=== PATIENT | female | born 1990 | race Caucasian/White ===

== ENCOUNTER 2018-11-03 01:02 | Inpatient (IN) | payer OTHER ==
[2018-11-03] MEDS ORDERED: Tranexamic Acid 1,000 MG in Sodium Chloride 0.9% 100 ML IV PRN (17:31)
[2018-11-03] MEDS ORDERED: Sodium Chloride 0.9% 2.5 ML Syringe FLUSH PRN (17:31)
[2018-11-03] MEDS ORDERED: Misoprostol 200 MCG Tab PO PRN (17:31)
[2018-11-03] MEDS ORDERED: Nalbuphine 10 MG/1 ML Vial IVPUSH PRN (17:31)
[2018-11-03] MEDS ORDERED: Terbutaline 1 MG/ML SDV SUBCUT PRN (17:31)
[2018-11-03] MEDS ORDERED: Methylergonovine 0.2 MG/1 ML Amp IM PRN (17:31)
[2018-11-03] MEDS ORDERED: Carboprost Tromethamine 250 MCG/1 ML Amp IM PRN (17:31)
[2018-11-03] MEDS ORDERED: Sodium Chloride 0.9% 10 ML SDV IV PRN (17:31)
[2018-11-03] MEDS ORDERED: Water For Irrigation,Sterile 1,000 ML Container IRR PRN (17:31)
[2018-11-03] MEDS ORDERED: Sodium Chloride 0.9% 10 ML Syringe FLUSH PRN (17:31)
[2018-11-03] MEDS ORDERED: Dinoprostone 10 MG Insert VAG PRN (17:31)
[2018-11-03] MEDS ORDERED: Lidocaine 1% 50 ML MDV INJECT PRN (17:31)
[2018-11-03] MEDS ORDERED: Oxytocin/0.9 % Sodium Chloride 30 UNIT/500 ML BAG IV SCH ×2 (17:45)
--- NOTE | 2018-11-03 19:01 | US ---
INDICATION: Oligohydramnios. Post dates. COMPARISON: None available FINDINGS: Transabdominal examination of the is performed. A single intrauterine gestation is seen in cephalic presentation with regular cardiac activity at 135 beats per minute. The placenta is anterior and is free of the cervical os. The placental grade is II and the amniotic fluid volume is low normal. The DVP is normal at 2.7 cm. The LUIS ANGEL is low normal at 7.8 centimeters. The biophysical profile score is 8/8 with no points off. IMPRESSION: Single intrauterine gestation in cephalic presentation with regular cardiac activity. Normal DVP at 2.7 cm. Normal biophysical profile score of 8/8. Dictated by Lauri Gallo MD @ Nov 03 2018 6:56PM Signed by Dr. Lauri Gallo @ Nov 03 2018 6:59PM
[2018-11-03] MEDS: Nicotine 14 MG/24 Hr Patch TRDERM SCH (20:57)
[2018-11-04] MEDS: Lactated Ringers 1,000 ML IV SCH ×4 (09:34→22:00)
[2018-11-04] MEDS: Butorphanol 1 MG/ML SDV IVPUSH PRN ×4 (11:21→22:00)
[2018-11-04] MEDS: Ondansetron 4 MG/2 ML SDV IVPUSH PRN (19:13)
--- NOTE | 2018-11-04 22:12 | PCM.PREANE ---
Preanesthetic Assessment - Anesthesia/Transfusion/Family Hx Anesthesia History: Prior Anesthesia Without Reaction Family History of Anesthesia Reaction: No Transfusion History: No Prior Transfusion(s) - Review of Systems General: No Symptoms Pulmonary: No Symptoms Cardiovascular: No Symptoms Gastrointestinal: No Symptoms Neurological: No Symptoms Other: Reports: None - Physical Assessment Height: 5 ft 8 in Weight: 144.242 kg ASA Class: 3 Mental Status: Alert & Oriented x3 Airway Class: Mallampati = 2 Dentition: Reports: Normal Dentition Thyro-Mental Finger Breadths: 3 Mouth Opening Finger Breadths: 3 ROM/Head Extension: Full Lungs: Clear to Auscultation, Normal Respiratory Effort Cardiovascular: Regular Rate, Regular Rhythm - Lab Values: Laboratory Last Values WBC 17.50 K/uL (4.0-11.0) H 11/03/18 18:53 RBC 4.02 M/uL (4.30-5.90) L 11/03/18 18:53 Hgb 11.6 g/dL (12.0-16.0) L 11/03/18 18:53 Hct 34.8 % (36.0-46.0) L 11/03/18 18:53 MCV 86.6 fL (80.0-98.0) 11/03/18 18:53 MCH 28.9 pg (27.0-32.0) 11/03/18 18:53 MCHC 33.3 g/dL (31.0-37.0) 11/03/18 18:53 RDW Std Deviation 44.8 fl (28.0-62.0) 11/03/18 18:53 RDW Coeff of Caitlin 14 % (11.0-15.0) 11/03/18 18:53 Plt Count 276 K/uL (150-400) 11/03/18 18:53 MPV 10.60 fL (7.40-12.00) 11/03/18 18:53 Nucleated RBC % 0.0 /100WBC 11/03/18 18:53 Nucleated RBCs # 0 K/uL 11/03/18 18:53 Blood Type A POSITIVE 11/03/18 18:53 Antibody Screen NEGATIVE 11/03/18 18:53 - Allergies Allergies/Adverse Reactions: Allergies Allergy/AdvReac Type Severity Reaction Status Date / Time hydromorphone HCl Allergy Itching Verified 11/03/18 20:38 [From Dilaudid] - Acknowledgements Anesthesia Type Planned: Epidural Pt an Appropriate Candidate for the Planned Anesthesia: Yes Alternatives and Risks of Anesthesia Discussed w Pt/Guardian: Yes Pt/Guardian Understands and Agrees with Anesthesia Plan: Yes PreAnesthesia Questionnaire HEENT History: Reports: None Cardiovascular History: Reports: None Respiratory History: Reports: None Gastrointestinal History: Reports: GERD Genitourinary History: Reports: None [employer]OR History: Reports: : 1 Para: 0 LMP (Approximate): Musculoskeletal History: Reports: None Neurological History: Reports: None Psychiatric History: Reports: None Endocrine/Metabolic History: Reports: Obesity/BMI 30+ (Super Morbid Obesity) Hematologic History: Reports: None Immunologic History: Reports: None Oncologic (Cancer) History: Reports: None Dermatologic History: Reports: None - Infectious Disease History Infectious Disease History: Reports: None - Past Surgical History HEENT Surgical History: Reports: LASIK, Tonsillectomy Female Surgical History: Reports: Other (See Below) Other Female Surgeries/Procedures: patient states when she was 4 she had surgery on her left ureter re-implantation Musculoskeletal Surgical History: Reports: Other (See Below) Other Musculoskeletal Surgeries/Procedures:: left arm fx and surgery - SUBSTANCE USE Smoking Status *Q: Current Every Day Smoker Tobacco Use Within Last Twelve Months: Cigarettes Recreational Drug Use History: No - HOME MEDS Home Medications: Home Meds Omeprazole 20 mg PO DAILY 11/03/18 [History] - CURRENT (IN HOUSE) MEDS Current Meds: Current Medications Butorphanol Tartrate (Stadol) 1 mg IVPUSH Q1H PRN PRN Reason: Pain Last Admin: 11/04/18 22:00 Dose: 1 mg Carboprost Tromethamine (Hemabate Ds) 250 mcg IM ASDIRECTED PRN PRN Reason: Post Hemorrhage Dinoprostone (Cervidil) 10 mg VAG ONETIME PRN PRN Reason: Cervical Ripening Last Admin: 11/03/18 20:40 Dose: 10 mg Lactated Ringer's (Ringers, Lactated) 1,000 mls @ 150 mls/hr IV ASDIRECTED JORDIN Last Admin: 11/04/18 22:00 Dose: 150 mls/hr Oxytocin/Sodium Chloride (Oxytocin 30 Unit/500 Ml-Ns) 30 unit in 500 mls @ 999 mls/hr IV TITRATE JORDIN Oxytocin/Sodium Chloride (Oxytocin 30 Unit/500 Ml-Ns) 30 unit in 500 mls @ 2 mls/hr IV TITRATE [facility]; Protocol Last Titration: 11/04/18 17:43 Dose: 12 munits/min, 12 mls/hr Tranexamic Acid 1,000 mg/ (Sodium Chloride) 110 mls @ 660 mls/hr IV ONETIME PRN PRN Reason: Bleeding Lidocaine HCl (Xylocaine 1%) 50 ml INJECT ONETIME PRN PRN Reason: Laceration repair Methylergonovine Maleate (Methergine) 0.2 mg IM ASDIRECTED PRN PRN Reason: Post Hemorrhage Miscellaneous Information (Remove Patch) 1 ea TRDERM DAILY@2100 [facility] Misoprostol (Cytotec) 200 mcg PO ONETIME PRN PRN Reason: Post Hemorrhage Nalbuphine HCl (Nubain) 10 mg IVPUSH Q1H PRN PRN Reason: Pain (severe 7-10) Nicotine (Habitrol) 14 mg TRDERM DAILY [facility] Last Admin: 11/03/18 20:57 Dose: 14 mg Ondansetron HCl (Zofran) 4 mg IVPUSH Q6H PRN PRN Reason: Nausea/Vomiting Last Admin: 11/04/18 19:13 Dose: 4 mg Sodium Chloride (Saline Flush) 10 ml FLUSH ASDIRECTED PRN PRN Reason: Keep Vein Open Sodium Chloride (Saline Flush) 2.5 ml FLUSH ASDIRECTED PRN PRN Reason: Keep Vein Open Sodium Chloride (Normal Saline) 10 ml IV ASDIRECTED PRN PRN Reason: IV Use Sterile Water (Sterile Water For Irrigation) 1,000 ml IRR ASDIRECTED PRN PRN Reason: delivery Terbutaline Sulfate (Brethine) 0.25 mg SUBCUT ASDIRECTED PRN PRN Reason: Tacysystole
[2018-11-04 23:30] LABS: BLOOD UREA NITROGEN,BUN 10 mg/dL (7.0-18.0); CHLORIDE,CL 105 mmol/L (98-107); GLUCOSE RANDOM 89 mg/dL (74-106); POTASSIUM,K 4.7 mmol/L (3.5-5.1); SODIUM,NA 137 mmol/L (136-145)
[2018-11-05] MEDS: Lactated Ringers 1,000 ML IV SCH ×2 (07:18→20:13)
[2018-11-05] MEDS: Ondansetron 4 MG/2 ML SDV IVPUSH PRN (12:55)
[2018-11-05] MEDS ORDERED: Metoclopramide 10 MG/2 ML SDV IVPUSH ONE (16:36)
[2018-11-05] MEDS ORDERED: Gentamicin Pediatric 10 MG/ML 2 ML SDV IV ONE (20:37)
[2018-11-05] MEDS ORDERED: Ampicillin 2 GM in Sodium Chloride 0.9% 100 ML IV SCH (20:45)
[2018-11-05 21:00] LABS: BLOOD UREA NITROGEN,BUN 12 mg/dL (7.0-18.0); CARBON DIOXIDE,CO2 20.2 mmol/L (21.0-32.0); CHLORIDE,CL 103 mmol/L (98-107); GLUCOSE RANDOM 87 mg/dL (74-106); SODIUM,NA 136 mmol/L (136-145)
[2018-11-05] MEDS ORDERED: GENTAMICIN IV SCH ×2 (21:00)
[2018-11-05] MEDS ORDERED: WATER IV SCH ×2 (21:00)
[2018-11-05] MEDS ORDERED: DEXTROSE 5% IV SCH ×2 (21:00)
[2018-11-05] MEDS: Nicotine 14 MG/24 Hr Patch TRDERM SCH (21:26)
[2018-11-05] MEDS ORDERED: Bupivacaine 0.5% 30 ML SDV ONE (23:56)
[2018-11-06] MEDS ORDERED: Metoclopramide 10 MG/2 ML SDV ONE (00:14)
[2018-11-06] MEDS ORDERED: Acetaminophen/oxyCODONE 325-5 MG Tab PO PRN (00:38)
[2018-11-06] MEDS ORDERED: fentaNYL 100 MCG/2 ML SDV IVPUSH PRN (00:38)
[2018-11-06] MEDS ORDERED: Naloxone 0.4 MG/ML Syringe IVPUSH PRN (00:38)
[2018-11-06] MEDS ORDERED: Nalbuphine 10 MG/1 ML Vial IVPUSH PRN (00:38)
[2018-11-06] MEDS ORDERED: Ondansetron 4 MG/2 ML SDV IVPUSH PRN ×2 (00:38→02:07)
[2018-11-06] MEDS ORDERED: diphenhydrAMINE 50 MG/ML SDV IVPUSH PRN ×2 (00:38→02:07)
[2018-11-06] MEDS ORDERED: Morphine PF 10 MG/10 ML SDV ONE (00:45)
[2018-11-06] MEDS ORDERED: Dexamethasone 4 MG/ML 5 ML MDV ONE (01:16)
[2018-11-06] MEDS ORDERED: Ondansetron 4 MG/2 ML SDV ONE (01:16)
[2018-11-06] MEDS ORDERED: fentaNYL 100 MCG/2 ML SDV ONE (01:16)
[2018-11-06] MEDS ORDERED: Lidocaine 2% 5 ML SDV ONE (01:16)
[2018-11-06] MEDS ORDERED: Oxytocin 10 Units/1 ML SDV ONE ×2 (01:16→01:48)
--- NOTE | 2018-11-06 02:05 | PCM.OPNOTE ---
- General Post-Op/Procedure Note Date of Surgery/Procedure: 11/06/18 Operative Procedure(s): Primary low-transverse section Findings: Live female infant, cephalic presentation, Apgars 7/9, weight 3640g Normal uterus, ovaries, tubes Pre Op Diagnosis: 1. 28yo at 40w6d gestation. 2. Induction of labor for oligohydramnios. 3. Failed induction due to arrest of active phase. 4. Gestational hypertension. 5. Maternal tachycardia Post-Op Diagnosis: same Anesthesia Technique: Epidural Primary Surgeon: Jory Moss Anesthesia Provider: Riky Charles Linen Room Houseperson: Brenda Davalos Linen Room Houseperson: Delores Alamo Pathology: Placenta Fluid Replacement, Intraop: 1,500 Output, Urine Amount: 100 EBL in mLs: 700 Complications: None Condition: Good Free Text/Narrative:: Intake & Output 11/05/18 11/05/18 11/06/18 14:59 22:59 06:59 Output Total 1050 100 Balance -1050 -100 Dictation #[id number]
[2018-11-06] MEDS ORDERED: Lanolin 100% Cream 7 GM Tube TOP PRN (02:07)
[2018-11-06] MEDS ORDERED: Witch Hazel Medicated Pads 40/Jar TOP PRN (02:07)
[2018-11-06] MEDS ORDERED: diphenhydrAMINE 25 MG Cap PO PRN (02:07)
[2018-11-06] MEDS ORDERED: Bisacodyl 10 MG Supp RECTAL PRN (02:07)
[2018-11-06] MEDS ORDERED: Azithromycin 500 MG in Sodium Chloride 0.9% 250 ML IV ONE (02:12)
[2018-11-06] MEDS ORDERED: Lactated Ringers 1,000 ML IV SCH (02:15)
--- NOTE | 2018-11-06 02:42 | PCM.POSTAN ---
POST ANESTHESIA ASSESSMENT - MENTAL STATUS Mental Status: Alert - VITAL SIGNS Pulse Rate: 100 SaO2: 97 Resp Rate: 16 Blood Pressure: 125/68 Temperature: 36.5 C - RESPIRATORY Respiratory Status: Respiratory Rate WNL, Airway Patent - CARDIOVASCULAR CV Status: Pulse Rate WNL, Blood Pressure Stable - GASTROINTESTINAL GI Status: No Symptoms - POST OP HYDRATION Hydration Status: Adequate & Stable
--- NOTE | 2018-11-06 03:09 | OR ---
SURGEON: Jory Moss MD DATE OF PROCEDURE: 11/06/2018 PREOPERATIVE DIAGNOSES: 1. A 28-year-old G1, P0 at 40 weeks and 6 days' gestation. 2. Induction of labor for oligohydramnios. 3. Failed induction due to arrest of active phase. 4. Gestational hypertension. 5. Maternal tachycardia. POSTOPERATIVE DIAGNOSES: 1. A 28-year-old G1, P0 at 40 weeks and 6 days' gestation. 2. Induction of labor for oligohydramnios. 3. Failed induction due to arrest of active phase. 4. Gestational hypertension. 5. Maternal tachycardia. PROCEDURE: Primary low transverse section. ANESTHESIA: Epidural. PRIMARY SURGEON: Jory Moss MD. ANESTHESIA PROVIDER: Dr. Riky andersen. SALES OPERATIONS LEAD: 1. Brenda Davalos. 2. Delores Alamo. PATHOLOGY: Placenta. IV FLUIDS: 800 mL LR. URINE OUTPUT: 100 mL. ESTIMATED BLOOD LOSS: 700 mL. ANTIBIOTICS: Ancef 3 g given prior to procedure. COMPLICATIONS: None. FINDINGS: Live female infant in cephalic presentation. score of 7 and 9 at 1 and 5 minutes respectively. Weight 3640 g. Normal uterus, ovaries, and tubes. DESCRIPTION OF PROCEDURE: The patient progressed to 9 cm dilation. After 6 hours of no cervical change with inadequate contractions, the decision was made to proceed with primary section for arrest of active phase. Risks and benefits of the procedure were discussed with the patient. The patient was taken to the operating room with IV fluid running and Murry in place. SCDs were applied. The patient was placed in dorsal supine position with leftward tilt. She was prepared and draped in a normal sterile fashion. A Pfannenstiel skin incision was made with a scalpel and carried through to the underlying layer of fascia with a Bovie. The fascia was incised in the midline. The incision extended laterally with curved Davalos scissors. The anterior aspect of the fascial incision was grasped with Reshma clamps, elevated, and the underlying rectus muscles were dissected off bluntly in a similar fashion. The inferior aspect of the fascial incision was grasped with Reshma clamps, elevated, and the underlying rectus muscles were dissected off in blunt fashion with curved Davalos scissors. The midline of the rectus muscles was identified and the peritoneum entered bluntly with a finger. The peritoneal incision was extended using manual traction. An Wagner retractor was placed. A bladder flap was created in a usual manner. A hysterotomy was created. There was difficulty delivering the head due to hysterotomy. A hand from below was used to assist with breaking suction due to low station. The head was subsequently delivered without difficulty followed by the remainder of the body. The cord was clamped and cut, and the infant handed off to the awaiting nurse and electroencephalographic technician. The placenta was removed using uterine massage and manual traction on the cord. The uterus was cleared of all debris. Uterine incision was closed with a running locked stitch of 0 Vicryl suture. Second stitch of the same suture was used to obtain hemostasis. The gutters were cleared of all clots. The uterus was returned to the abdomen. The incision was inspected and noted to be hemostatic. The Wagner retractor was removed. The fascia was closed with 2 sutures of running 0 Vicryl, meeting in the midline. The subcutaneous tissue was closed with 3-0 Vicryl in a running fashion. The skin was closed with 4-0 Monocryl in a subcuticular fashion. The patient tolerated the procedure well. All sponge, lap, and needle counts were correct x3. The patient was taken to the recovery room in stable condition. [id number] / NIESHAL /[id number] WAYNE
[2018-11-06] MEDS: Ketorolac 30 MG/ML SDV IVPUSH SCH ×4 (05:38→20:46)
[2018-11-06] MEDS: Lactated Ringers 1,000 ML IV SCH (07:45)
--- NOTE | 2018-11-06 09:39 | PCM.PNPP ---
<Delores Alamo - Last Filed: 11/06/18 09:34> - General Info Date of Service: 11/06/18 Functional Status: Reports: Pain Controlled, Tolerating Diet, Incentive Spirometry. Denies: Ambulating - Review of Systems General: Reports: No Symptoms. Denies: Fever, Fatigue HEENT: Reports: No Symptoms. Denies: Headaches Pulmonary: Reports: No Symptoms. Denies: Shortness of Breath Cardiovascular: Reports: No Symptoms. Denies: Chest Pain, Palpitations Gastrointestinal: Reports: Abdominal Pain (mild incisional pain) Genitourinary: Reports: No Symptoms Musculoskeletal: Reports: No Symptoms Skin: Reports: No Symptoms Neurological: Reports: No Symptoms Psychiatric: Reports: No Symptoms - General Info Date of Service: 11/06/18 - Patient Data Vital Signs - Most Recent: Last Vital Signs Temp 97.8 F 11/06/18 08:00 Pulse 92 11/06/18 08:00 Resp 16 11/06/18 08:00 BP 141/85 H 11/06/18 08:00 Pulse Ox 96 11/06/18 08:00 Weight - Most Recent: 144.242 kg I&O - Last 24 Hours: Intake & Output 11/05/18 11/06/18 11/06/18 22:59 06:59 14:59 Intake Total 3500 Output Total 1050 750 380 Balance -1050 2750 -380 Lab Results - Last 24 Hours: Laboratory Results - last 24 hr 11/05/18 11/05/18 Range/Units 20:03 20:03 WBC 21.88 H (4.0-11.0) K/uL RBC 3.90 L (4.30-5.90) M/uL Hgb 11.4 L (12.0-16.0) g/dL Hct 33.5 L (36.0-46.0) % MCV 85.9 (80.0-98.0) fL MCH 29.2 (27.0-32.0) pg MCHC 34.0 (31.0-37.0) g/dL RDW Std Deviation 42.7 (28.0-62.0) fl RDW Coeff of Caitlin 14 (11.0-15.0) % Plt Count 217 (150-400) K/uL MPV 10.90 (7.40-12.00) fL Sodium 136 (136-145) mmol/L Potassium 4.0 (3.5-5.1) mmol/L Chloride 103 (98-107) mmol/L Carbon Dioxide 20.2 L (21.0-32.0) mmol/L BUN 12 (7.0-18.0) mg/dL Creatinine 1.0 (0.6-1.0) mg/dL Est Cr Clr Drug Dosing 86.00 mL/min Estimated GFR (MDRD) > 60.0 ml/min Glucose 87 (74-106) mg/dL Calcium 9.2 (8.5-10.1) mg/dL Total Bilirubin 0.8 (0.2-1.0) mg/dL AST 19 (15-37) IU/L ALT 18 (14-63) IU/L Alkaline Phosphatase 119 H (46-116) U/L Lactate Dehydrogenase 188 (81-234) U/L Total Protein 6.1 L (6.4-8.2) g/dL Albumin 2.5 L (3.4-5.0) g/dL Globulin 3.6 (2.6-4.0) g/dL Albumin/Globulin Ratio 0.7 L (0.9-1.6) Med Orders - Current: Current Medications Bisacodyl (Dulcolax) 10 mg RECTAL ONETIME PRN PRN Reason: Constipation Butorphanol Tartrate (Stadol) 1 mg IVPUSH Q1H PRN PRN Reason: Pain Last Admin: 11/04/18 22:00 Dose: 1 mg Carboprost Tromethamine (Hemabate Ds) 250 mcg IM ASDIRECTED PRN PRN Reason: Post Hemorrhage Dinoprostone (Cervidil) 10 mg VAG ONETIME PRN PRN Reason: Cervical Ripening Last Admin: 11/03/18 20:40 Dose: 10 mg Diphenhydramine HCl (Benadryl) 25 mg IVPUSH Q4H PRN PRN Reason: Itching Stop: 11/07/18 00:38 Diphenhydramine HCl (Benadryl) 25 mg IVPUSH Q6H PRN PRN Reason: Itching or Nausea Diphenhydramine HCl (Benadryl) 25 mg PO Q4H PRN PRN Reason: Itching Docusate Sodium (Colace) 100 mg PO BID [facility] Emollient Ointment (Lansinoh Hpa) 0 gm TOP ASDIRECTED PRN PRN Reason: Sore Nipples Fentanyl (Sublimaze) 50 mcg IVPUSH Q1H PRN PRN Reason: Pain (severe 7-10) Lactated Ringer's (Ringers, Lactated) 1,000 mls @ 150 mls/hr IV ASDIRECTED [facility] Last Admin: 11/06/18 07:45 Dose: 150 mls/hr Oxytocin/Sodium Chloride (Oxytocin 30 Unit/500 Ml-Ns) 30 unit in 500 mls @ 999 mls/hr IV TITRATE [facility] Oxytocin/Sodium Chloride (Oxytocin 30 Unit/500 Ml-Ns) 30 unit in 500 mls @ 2 mls/hr IV TITRATE [facility]; Protocol Last Titration: 11/05/18 22:46 Dose: 20 munits/min, 20 mls/hr Tranexamic Acid 1,000 mg/ (Sodium Chloride) 110 mls @ 660 mls/hr IV ONETIME PRN PRN Reason: Bleeding Gentamicin Sulfate 480 mg/ (Dextrose/Water) 112 mls @ 224 mls/hr IV Q24H [facility] Lactated Ringer's (Ringers, Lactated) 1,000 mls @ 125 mls/hr IV ASDIRECTED [facility] Ibuprofen (Motrin) 800 mg PO Q8H [facility] Ketorolac Tromethamine (Toradol) 30 mg IVPUSH Q6H [facility] Stop: 11/07/18 02:16 Last Admin: 11/06/18 08:15 Dose: 30 mg Lidocaine HCl (Xylocaine 1%) 50 ml INJECT ONETIME PRN PRN Reason: Laceration repair Methylergonovine Maleate (Methergine) 0.2 mg IM ASDIRECTED PRN PRN Reason: Post Hemorrhage Miscellaneous Information (Remove Patch) 1 ea TRDERM DAILY@2100 [facility] Last Admin: 11/06/18 05:37 Dose: Not Given Misoprostol (Cytotec) 200 mcg PO ONETIME PRN PRN Reason: Post Hemorrhage Nalbuphine HCl (Nubain) 10 mg IVPUSH Q1H PRN PRN Reason: Pain (severe 7-10) Nalbuphine HCl (Nubain) 5 mg IVPUSH ASDIRECTED PRN PRN Reason: Itching Last Admin: 11/06/18 07:46 Dose: 5 mg Naloxone HCl (Narcan) 0.1 mg IVPUSH ONETIME PRN PRN Reason: Respiratory Depression Stop: 11/07/18 00:38 Nicotine (Habitrol) 14 mg TRDERM DAILY [facility] Last Admin: 11/05/18 21:26 Dose: Not Given Ondansetron HCl (Zofran) 4 mg IVPUSH Q6H PRN PRN Reason: Nausea Ondansetron HCl (Zofran) 4 mg IVPUSH Q4H PRN PRN Reason: Nausea/Vomiting Oxycodone/Acetaminophen (Percocet 325-5 Mg) 1 tab PO Q4H PRN PRN Reason: Pain (moderate 4-6) Oxycodone/Acetaminophen (Percocet 325-5 Mg) 2 tab PO Q4H PRN PRN Reason: Pain (moderate 4-6) Simethicone (Simethicone) 80 mg PO Q4H PRN PRN Reason: Gas Sodium Chloride (Saline Flush) 10 ml FLUSH ASDIRECTED PRN PRN Reason: Keep Vein Open Last Admin: 11/05/18 16:51 Dose: 10 ml Sodium Chloride (Saline Flush) 2.5 ml FLUSH ASDIRECTED PRN PRN Reason: Keep Vein Open Sodium Chloride (Normal Saline) 10 ml IV ASDIRECTED PRN PRN Reason: IV Use Sterile Water (Sterile Water For Irrigation) 1,000 ml IRR ASDIRECTED PRN PRN Reason: delivery Terbutaline Sulfate (Brethine) 0.25 mg SUBCUT ASDIRECTED PRN PRN Reason: Tacysystole Witch Valery (Tucks) 1 pad TOP ASDIRECTED PRN PRN Reason: Perineal Comfort Measure Discontinued Medications Bupivacaine HCl (Marcaine 0.5%) Confirm Administered Dose 30 ml .ROUTE .STK-MED ONE Stop: 11/05/18 23:57 Dexamethasone (Dexamethasone) Confirm Administered Dose 20 mg .ROUTE .STK-MED ONE Stop: 11/06/18 01:17 Fentanyl (Sublimaze) Confirm Administered Dose 100 mcg .ROUTE .STK-MED ONE Stop: 11/06/18 01:17 Fentanyl/Bupivacaine HCl (Jvichqmr-Krilm-Lm 2 Mcg/Ml-0.125%) Confirm Administered Dose 100 mls @ as directed .ROUTE .STK-MED ONE Stop: 11/04/18 22:19 Fentanyl/Bupivacaine HCl (Vhiyfyes-Vtdih-Lw 2 Mcg/Ml-0.125%) Confirm Administered Dose 100 mls @ as directed .ROUTE .STK-MED ONE Stop: 11/05/18 08:01 Fentanyl/Bupivacaine HCl (Mxwgcjfa-Qsffl-Hi 2 Mcg/Ml-0.125%) Confirm Administered Dose 100 mls @ as directed .ROUTE .STK-MED ONE Stop: 11/05/18 14:52 Ampicillin Sodium 2 gm/ Sodium (Chloride) 100 mls @ 200 mls/hr IV Q6H [facility] Fentanyl/Bupivacaine HCl (Lcihtevm-Pmipo-Sq 2 Mcg/Ml-0.125%) Confirm Administered Dose 100 mls @ as directed .ROUTE .STK-MED ONE Stop: 11/05/18 21:12 Azithromycin 500 mg/ Sodium (Chloride) 250 mls @ 250 mls/hr IV ONETIME ONE Stop: 11/06/18 03:11 Last Admin: 11/06/18 03:11 Dose: 250 mls/hr Lidocaine (Xylocaine-Mpf 2%) Confirm Administered Dose 5 ml .ROUTE .ST-MED ONE Stop: 11/06/18 01:17 Metoclopramide HCl (Reglan) 10 mg IVPUSH ONETIME ONE Stop: 11/05/18 16:37 Last Admin: 11/05/18 16:47 Dose: 10 mg Metoclopramide HCl (Reglan) Confirm Administered Dose 10 mg .ROUTE .STK-MED ONE Stop: 11/06/18 00:15 Morphine Sulfate (Duramorph Pf) Confirm Administered Dose 10 mg .ROUTE .ST-MED ONE Stop: 11/06/18 00:46 Ondansetron HCl (Zofran) 4 mg IVPUSH Q6H PRN PRN Reason: Nausea/Vomiting Last Admin: 11/05/18 12:55 Dose: 4 mg Ondansetron HCl (Zofran) Confirm Administered Dose 8 mg .ROUTE .STK-MED ONE Stop: 11/06/18 01:17 Oxycodone/Acetaminophen (Percocet 325-5 Mg) 2 tab PO Q6H PRN PRN Reason: Pain (moderate 4-6) Oxytocin (Pitocin) Confirm Administered Dose 30 unit .ROUTE .STK-MED ONE Stop: 11/06/18 01:17 Oxytocin (Pitocin) Confirm Administered Dose 30 unit .ROUTE .STK-MED ONE Stop: 11/06/18 01:49 - Infant Interaction Disposition, : [facility] to Nursery Infant Interaction: Unable to Hold Infant at this Time Infant Feeding: Other (see below) (Has not attempted to breastfeed yet as is on O2 in the nursery. Planning to try today. ) Support Person: Significant Other - Recovery Exam Fundal Tone: Firm Fundal Level: 1 Fingerbreadths Below Umbilicus Fundal Placement: Midline Lochia Amount: Scant Lochia Color: Rubra/Red Perineum Description: Intact, Minimal Bruising/Swelling Episiotomy/Laceration: None Bladder Status: Indwelling Catheter in Place Urinary Elimination: Indwelling Catheter - Exam General: Alert, Oriented HEENT: Pupils Equal Neck: Supple Lungs: Clear to Auscultation, Normal Respiratory Effort Cardiovascular: Regular Rate, Regular Rhythm GI/Abdominal Exam: Normal Bowel Sounds, Soft, Non-Tender, No Organomegaly, No Distention, No Abnormal Bruit, No Mass, Pelvis Stable Extremities: Normal Inspection, Normal Range of Motion, Non-Tender, No Pedal Edema, Normal Capillary Refill Skin: Warm, Dry, Intact Wound/Incisions: Dressing Dry and Intact, No Drainage Neurological: No New Focal Deficit Psy/Mental Status: Alert, Normal Affect, Normal Mood - Problem List Review Problem List Initiated/Reviewed/Updated: Yes - Assessment Assessment:: POD 0 s/p primary LTCS Has not attempted yet but is planning on Pain well controlled but has not ambulated yet Tolerating light snacks, ordered breakfast. Catheter still in place - Plan Plan:: Regular diet as tolerated Pain control PRN Remove catheter today Ambulate PRN Incentive spirometry Routine care <Jory Moss - Last Filed: 11/06/18 10:34> - Patient Data Vital Signs - Most Recent: Last Vital Signs Temp 36.6 C 11/06/18 08:00 Pulse 89 11/06/18 09:00 Resp 18 11/06/18 09:00 BP 141/85 H 11/06/18 08:00 Pulse Ox 98 11/06/18 09:00 I&O - Last 24 Hours: Intake & Output 11/05/18 11/06/18 11/06/18 22:59 06:59 14:59 Intake Total 3500 Output Total 1050 750 380 Balance -1050 2750 -380 Lab Results - Last 24 Hours: Laboratory Results - last 24 hr 11/05/18 11/05/18 Range/Units 20:03 20:03 WBC 21.88 H (4.0-11.0) K/uL RBC 3.90 L (4.30-5.90) M/uL Hgb 11.4 L (12.0-16.0) g/dL Hct 33.5 L (36.0-46.0) % MCV 85.9 (80.0-98.0) fL MCH 29.2 (27.0-32.0) pg MCHC 34.0 (31.0-37.0) g/dL RDW Std Deviation 42.7 (28.0-62.0) fl RDW Coeff of Caitlin 14 (11.0-15.0) % Plt Count 217 (150-400) K/uL MPV 10.90 (7.40-12.00) fL Sodium 136 (136-145) mmol/L Potassium 4.0 (3.5-5.1) mmol/L Chloride 103 (98-107) mmol/L Carbon Dioxide 20.2 L (21.0-32.0) mmol/L BUN 12 (7.0-18.0) mg/dL Creatinine 1.0 (0.6-1.0) mg/dL Est Cr Clr Drug Dosing 86.00 mL/min Estimated GFR (MDRD) > 60.0 ml/min Glucose 87 (74-106) mg/dL Calcium 9.2 (8.5-10.1) mg/dL Total Bilirubin 0.8 (0.2-1.0) mg/dL AST 19 (15-37) IU/L ALT 18 (14-63) IU/L Alkaline Phosphatase 119 H (46-116) U/L Lactate Dehydrogenase 188 (81-234) U/L Total Protein 6.1 L (6.4-8.2) g/dL Albumin 2.5 L (3.4-5.0) g/dL Globulin 3.6 (2.6-4.0) g/dL Albumin/Globulin Ratio 0.7 L (0.9-1.6) Med Orders - Current: Current Medications Bisacodyl (Dulcolax) 10 mg RECTAL ONETIME PRN PRN Reason: Constipation Butorphanol Tartrate (Stadol) 1 mg IVPUSH Q1H PRN PRN Reason: Pain Last Admin: 11/04/18 22:00 Dose: 1 mg Carboprost Tromethamine (Hemabate Ds) 250 mcg IM ASDIRECTED PRN PRN Reason: Post Hemorrhage Dinoprostone (Cervidil) 10 mg VAG ONETIME PRN PRN Reason: Cervical Ripening Last Admin: 11/03/18 20:40 Dose: 10 mg Diphenhydramine HCl (Benadryl) 25 mg IVPUSH Q4H PRN PRN Reason: Itching Stop: 11/07/18 00:38 Diphenhydramine HCl (Benadryl) 25 mg IVPUSH Q6H PRN PRN Reason: Itching or Nausea Diphenhydramine HCl (Benadryl) 25 mg PO Q4H PRN PRN Reason: Itching Docusate Sodium (Colace) 100 mg PO BID [facility] Emollient Ointment (Lansinoh Hpa) 0 gm TOP ASDIRECTED PRN PRN Reason: Sore Nipples Fentanyl (Sublimaze) 50 mcg IVPUSH Q1H PRN PRN Reason: Pain (severe 7-10) Lactated Ringer's (Ringers, Lactated) 1,000 mls @ 150 mls/hr IV ASDIRECTED [facility] Last Admin: 11/06/18 07:45 Dose: 150 mls/hr Oxytocin/Sodium Chloride (Oxytocin 30 Unit/500 Ml-Ns) 30 unit in 500 mls @ 999 mls/hr IV TITRATE [facility] Oxytocin/Sodium Chloride (Oxytocin 30 Unit/500 Ml-Ns) 30 unit in 500 mls @ 2 mls/hr IV TITRATE [facility]; Protocol Last Titration: 11/05/18 22:46 Dose: 20 munits/min, 20 mls/hr Tranexamic Acid 1,000 mg/ (Sodium Chloride) 110 mls @ 660 mls/hr IV ONETIME PRN PRN Reason: Bleeding Gentamicin Sulfate 480 mg/ (Dextrose/Water) 112 mls @ 224 mls/hr IV Q24H [facility] Lactated Ringer's (Ringers, Lactated) 1,000 mls @ 125 mls/hr IV ASDIRECTED [facility] Ibuprofen (Motrin) 800 mg PO Q8H [facility] Ketorolac Tromethamine (Toradol) 30 mg IVPUSH Q6H [facility] Stop: 11/07/18 02:16 Last Admin: 11/06/18 08:15 Dose: 30 mg Lidocaine HCl (Xylocaine 1%) 50 ml INJECT ONETIME PRN PRN Reason: Laceration repair Methylergonovine Maleate (Methergine) 0.2 mg IM ASDIRECTED PRN PRN Reason: Post Hemorrhage Miscellaneous Information (Remove Patch) 1 ea TRDERM DAILY@2100 [facility] Last Admin: 11/06/18 05:37 Dose: Not Given Misoprostol (Cytotec) 200 mcg PO ONETIME PRN PRN Reason: Post Hemorrhage Nalbuphine HCl (Nubain) 10 mg IVPUSH Q1H PRN PRN Reason: Pain (severe 7-10) Nalbuphine HCl (Nubain) 5 mg IVPUSH ASDIRECTED PRN PRN Reason: Itching Last Admin: 11/06/18 07:46 Dose: 5 mg Naloxone HCl (Narcan) 0.1 mg IVPUSH ONETIME PRN PRN Reason: Respiratory Depression Stop: 11/07/18 00:38 Nicotine (Habitrol) 14 mg TRDERM DAILY [facility] Last Admin: 11/05/18 21:26 Dose: Not Given Ondansetron HCl (Zofran) 4 mg IVPUSH Q6H PRN PRN Reason: Nausea Ondansetron HCl (Zofran) 4 mg IVPUSH Q4H PRN PRN Reason: Nausea/Vomiting Oxycodone/Acetaminophen (Percocet 325-5 Mg) 1 tab PO Q4H PRN PRN Reason: Pain (moderate 4-6) Oxycodone/Acetaminophen (Percocet 325-5 Mg) 2 tab PO Q4H PRN PRN Reason: Pain (moderate 4-6) Simethicone (Simethicone) 80 mg PO Q4H PRN PRN Reason: Gas Sodium Chloride (Saline Flush) 10 ml FLUSH ASDIRECTED PRN PRN Reason: Keep Vein Open Last Admin: 11/05/18 16:51 Dose: 10 ml Sodium Chloride (Saline Flush) 2.5 ml FLUSH ASDIRECTED PRN PRN Reason: Keep Vein Open Sodium Chloride (Normal Saline) 10 ml IV ASDIRECTED PRN PRN Reason: IV Use Sterile Water (Sterile Water For Irrigation) 1,000 ml IRR ASDIRECTED PRN PRN Reason: delivery Terbutaline Sulfate (Brethine) 0.25 mg SUBCUT ASDIRECTED PRN PRN Reason: Tacysystole Carlotta Rasmussen (Tucks) 1 pad TOP ASDIRECTED PRN PRN Reason: Perineal Comfort Measure Discontinued Medications Bupivacaine HCl (Marcaine 0.5%) Confirm Administered Dose 30 ml .ROUTE .STK-MED ONE Stop: 11/05/18 23:57 Dexamethasone (Dexamethasone) Confirm Administered Dose 20 mg .ROUTE .STK-MED ONE Stop: 11/06/18 01:17 Fentanyl (Sublimaze) Confirm Administered Dose 100 mcg .ROUTE .STK-MED ONE Stop: 11/06/18 01:17 Fentanyl/Bupivacaine HCl (Oaoeiztn-Ajkqv-Zk 2 Mcg/Ml-0.125%) Confirm Administered Dose 100 mls @ as directed .ROUTE .STK-MED ONE Stop: 11/04/18 22:19 Fentanyl/Bupivacaine HCl (Fvbfkbwh-Cvhvm-Mz 2 Mcg/Ml-0.125%) Confirm Administered Dose 100 mls @ as directed .ROUTE .STK-MED ONE Stop: 11/05/18 08:01 Fentanyl/Bupivacaine HCl (Mhlvaujr-Oinzh-Eh 2 Mcg/Ml-0.125%) Confirm Administered Dose 100 mls @ as directed .ROUTE .ST-MED ONE Stop: 11/05/18 14:52 Ampicillin Sodium 2 gm/ Sodium (Chloride) 100 mls @ 200 mls/hr IV Q6H [facility] Fentanyl/Bupivacaine HCl (Dcybisyr-Ahfan-Lg 2 Mcg/Ml-0.125%) Confirm Administered Dose 100 mls @ as directed .ROUTE .ST-MED ONE Stop: 11/05/18 21:12 Azithromycin 500 mg/ Sodium (Chloride) 250 mls @ 250 mls/hr IV ONETIME ONE Stop: 11/06/18 03:11 Last Admin: 11/06/18 03:11 Dose: 250 mls/hr Lidocaine (Xylocaine-Mpf 2%) Confirm Administered Dose 5 ml .ROUTE .STK-MED ONE Stop: 11/06/18 01:17 Metoclopramide HCl (Reglan) 10 mg IVPUSH ONETIME ONE Stop: 11/05/18 16:37 Last Admin: 11/05/18 16:47 Dose: 10 mg Metoclopramide HCl (Reglan) Confirm Administered Dose 10 mg .ROUTE .STK-MED ONE Stop: 11/06/18 00:15 Morphine Sulfate (Duramorph Pf) Confirm Administered Dose 10 mg .ROUTE .STK-MED ONE Stop: 11/06/18 00:46 Ondansetron HCl (Zofran) 4 mg IVPUSH Q6H PRN PRN Reason: Nausea/Vomiting Last Admin: 11/05/18 12:55 Dose: 4 mg Ondansetron HCl (Zofran) Confirm Administered Dose 8 mg .ROUTE .STK-MED ONE Stop: 11/06/18 01:17 Oxycodone/Acetaminophen (Percocet 325-5 Mg) 2 tab PO Q6H PRN PRN Reason: Pain (moderate 4-6) Oxytocin (Pitocin) Confirm Administered Dose 30 unit .ROUTE .STK-MED ONE Stop: 11/06/18 01:17 Oxytocin (Pitocin) Confirm Administered Dose 30 unit .ROUTE .STK-MED ONE Stop: 11/06/18 01:49 - Problem List & Annotations (1) delivery delivered SNOMED Code(s): 241564235 Code(s): O82 - ENCOUNTER FOR DELIVERY WITHOUT INDICATION Status: Acute Current Visit: Yes - My Orders Last 24 Hours: My Active Orders 11/05/18 21:00 Gentamicin 480 mg Dextrose 5% in Water 100 ml IV Q24H 11/06/18 02:07 Patient Status [ADT] Routine Ambulate [RC] PER UNIT ROUTINE Antiembolic Devices [RC] PER UNIT ROUTINE Communication Order [RC] PER UNIT ROUTINE Communication Order [RC] PER UNIT ROUTINE Communication Order [RC] Per Unit Routine Intake and Output [RC] Q8H May Shower [RC] ASDIRECTED Notify Provider Intake and Out [RC] ASDIRECTED Notify Provider Vital Signs [RC] ASDIRECTED RT Incentive Spirometry [RC] Q2HWA Urinary Catheter Removal [RC] Per Unit Routine Acetaminophen/oxyCODONE [Percocet 325-5 MG] 1 tab PO Q4H PRN Acetaminophen/oxyCODONE [Percocet 325-5 MG] 2 tab PO Q4H PRN Bisacodyl [Dulcolax] 10 mg RECTAL ONETIME PRN Lanolin [Lansinoh HPA] See Dose Instructions TOP ASDIRECTED PRN Ondansetron [Zofran] 4 mg IVPUSH Q4H PRN Simethicone 80 mg PO Q4H PRN Witch Valery [Tucks] 1 pad TOP ASDIRECTED PRN diphenhydrAMINE [Benadryl] 25 mg IVPUSH Q6H PRN diphenhydrAMINE [Benadryl] 25 mg PO Q4H PRN Assess Lochia [WOMSER] Per Unit Routine Assess Uterine Involution [WOMSER] Per Unit Routine Breast Pump [WOMSER] Per Unit Routine Peripheral IV Discontinue [OM.PC] Routine Sequential Compression Device [OM.PC] Per Unit Routine 11/06/18 02:08 Abdominal Binder [OM.PC] Per Unit Routine Heat Therapy [OM.PC] Per Unit Routine Ice Therapy [OM.PC] Per Unit Routine 11/06/18 02:15 Ketorolac [Toradol] 30 mg IVPUSH Q6H Lactated Ringers [Ringers, Lactated] 1,000 ml IV ASDIRECTED 11/06/18 09:00 Docusate Sodium [Colace] 100 mg PO BID 11/06/18 12:00 HEMOGLOBIN/HEMATOCRIT,HH [HEME] Routine 11/06/18 Breakfast Regular Diet [DIET] 11/07/18 08:00 Ibuprofen [Motrin] 800 mg PO Q8H - Plan Plan:: I have seen and examined the patient and agree with the above. Encourage ambulation. Anticipate discharge home POD#2-3
--- NOTE | 2018-11-06 11:41 | PCM48HPAN ---
Post Anesthesia Note - EVALUATION WITHIN 48HRS OF ANESTHETIC Vital Signs in Normal Range: Yes Patient Participated in Evaluation: Yes Respiratory Function Stable: Yes Airway Patent: Yes Cardiovascular Function Stable: Yes Hydration Status Stable: Yes Pain Control Satisfactory: Yes Nausea and Vomiting Control Satisfactory: Yes Mental Status Recovered: Yes Pulse Rate: 100 Resp Rate: 18 Temperature: 36.5 C Blood Pressure: 125/68
[2018-11-06] MEDS: Docusate Sodium 100 MG Cap PO SCH ×2 (21:10→21:25)
[2018-11-07] MEDS: Ketorolac 30 MG/ML SDV IVPUSH SCH (02:44)
[2018-11-07] MEDS: Simethicone 80 MG Tab.Chew PO PRN (06:33)
--- NOTE | 2018-11-07 07:21 | PCM.PNPP ---
<Delores Alamo - Last Filed: 11/07/18 07:19> - General Info Date of Service: 11/07/18 Functional Status: Reports: Pain Controlled, Tolerating Diet, Ambulating, Urinating, Incentive Spirometry - Review of Systems General: Reports: No Symptoms. Denies: Fever, Fatigue HEENT: Reports: No Symptoms. Denies: Headaches Pulmonary: Reports: No Symptoms. Denies: Shortness of Breath Cardiovascular: Reports: No Symptoms. Denies: Chest Pain, Palpitations Gastrointestinal: Reports: Abdominal Pain (cramping and mild incisional pain) Genitourinary: Reports: No Symptoms. Denies: Dysuria Musculoskeletal: Reports: No Symptoms Skin: Reports: No Symptoms Neurological: Reports: No Symptoms Psychiatric: Reports: No Symptoms - General Info Date of Service: 11/07/18 - Patient Data Vital Signs - Most Recent: Last Vital Signs Temp 97.8 F 11/07/18 06:37 Pulse 104 H 11/07/18 06:37 Resp 18 11/07/18 04:50 BP 123/78 11/07/18 06:37 Pulse Ox 100 11/07/18 06:17 Weight - Most Recent: 144.242 kg I&O - Last 24 Hours: Intake & Output 11/06/18 11/07/18 11/07/18 22:59 06:59 14:59 Intake Total 800 Output Total 1300 Balance -500 Lab Results - Last 24 Hours: Laboratory Results - last 24 hr 11/06/18 Range/Units 13:03 Hgb 10.1 L (12.0-16.0) g/dL Hct 29.2 L (36.0-46.0) % Med Orders - Current: Current Medications Bisacodyl (Dulcolax) 10 mg RECTAL ONETIME PRN PRN Reason: Constipation Butorphanol Tartrate (Stadol) 1 mg IVPUSH Q1H PRN PRN Reason: Pain Last Admin: 11/04/18 22:00 Dose: 1 mg Carboprost Tromethamine (Hemabate Ds) 250 mcg IM ASDIRECTED PRN PRN Reason: Post Hemorrhage Dinoprostone (Cervidil) 10 mg VAG ONETIME PRN PRN Reason: Cervical Ripening Last Admin: 11/03/18 20:40 Dose: 10 mg Diphenhydramine HCl (Benadryl) 25 mg IVPUSH Q6H PRN PRN Reason: Itching or Nausea Diphenhydramine HCl (Benadryl) 25 mg PO Q4H PRN PRN Reason: Itching Docusate Sodium (Colace) 100 mg PO BID [facility] Last Admin: 11/06/18 21:25 Dose: 100 mg Emollient Ointment (Lansinoh Hpa) 0 gm TOP ASDIRECTED PRN PRN Reason: Sore Nipples Fentanyl (Sublimaze) 50 mcg IVPUSH Q1H PRN PRN Reason: Pain (severe 7-10) Lactated Ringer's (Ringers, Lactated) 1,000 mls @ 150 mls/hr IV ASDIRECTED [facility] Last Admin: 11/06/18 07:45 Dose: 150 mls/hr Oxytocin/Sodium Chloride (Oxytocin 30 Unit/500 Ml-Ns) 30 unit in 500 mls @ 999 mls/hr IV TITRATE [facility] Oxytocin/Sodium Chloride (Oxytocin 30 Unit/500 Ml-Ns) 30 unit in 500 mls @ 2 mls/hr IV TITRATE [facility]; Protocol Last Titration: 11/05/18 22:46 Dose: 20 munits/min, 20 mls/hr Tranexamic Acid 1,000 mg/ (Sodium Chloride) 110 mls @ 660 mls/hr IV ONETIME PRN PRN Reason: Bleeding Gentamicin Sulfate 480 mg/ (Dextrose/Water) 112 mls @ 224 mls/hr IV Q24H [facility] Lactated Ringer's (Ringers, Lactated) 1,000 mls @ 125 mls/hr IV ASDIRECTED [facility] Last Admin: 11/06/18 15:15 Dose: 125 mls/hr Ibuprofen (Motrin) 800 mg PO Q8H [facility] Lidocaine HCl (Xylocaine 1%) 50 ml INJECT ONETIME PRN PRN Reason: Laceration repair Methylergonovine Maleate (Methergine) 0.2 mg IM ASDIRECTED PRN PRN Reason: Post Hemorrhage Miscellaneous Information (Remove Patch) 1 ea TRDERM DAILY@2100 [facility] Last Admin: 11/06/18 05:37 Dose: Not Given Misoprostol (Cytotec) 200 mcg PO ONETIME PRN PRN Reason: Post Hemorrhage Nalbuphine HCl (Nubain) 10 mg IVPUSH Q1H PRN PRN Reason: Pain (severe 7-10) Nalbuphine HCl (Nubain) 5 mg IVPUSH ASDIRECTED PRN PRN Reason: Itching Last Admin: 11/06/18 07:46 Dose: 5 mg Nicotine (Habitrol) 14 mg TRDERM DAILY [facility] Last Admin: 11/05/18 21:26 Dose: Not Given Ondansetron HCl (Zofran) 4 mg IVPUSH Q6H PRN PRN Reason: Nausea Ondansetron HCl (Zofran) 4 mg IVPUSH Q4H PRN PRN Reason: Nausea/Vomiting Oxycodone/Acetaminophen (Percocet 325-5 Mg) 1 tab PO Q4H PRN PRN Reason: Pain (moderate 4-6) Oxycodone/Acetaminophen (Percocet 325-5 Mg) 2 tab PO Q4H PRN PRN Reason: Pain (moderate 4-6) Simethicone (Simethicone) 80 mg PO Q4H PRN PRN Reason: Gas Last Admin: 11/07/18 06:33 Dose: 80 mg Sodium Chloride (Saline Flush) 10 ml FLUSH ASDIRECTED PRN PRN Reason: Keep Vein Open Last Admin: 11/05/18 16:51 Dose: 10 ml Sodium Chloride (Saline Flush) 2.5 ml FLUSH ASDIRECTED PRN PRN Reason: Keep Vein Open Sodium Chloride (Normal Saline) 10 ml IV ASDIRECTED PRN PRN Reason: IV Use Sterile Water (Sterile Water For Irrigation) 1,000 ml IRR ASDIRECTED PRN PRN Reason: delivery Terbutaline Sulfate (Brethine) 0.25 mg SUBCUT ASDIRECTED PRN PRN Reason: Tacysystole Witch Valery (Tucks) 1 pad TOP ASDIRECTED PRN PRN Reason: Perineal Comfort Measure Discontinued Medications Bupivacaine HCl (Marcaine 0.5%) Confirm Administered Dose 30 ml .ROUTE .STK-MED ONE Stop: 11/05/18 23:57 Dexamethasone (Dexamethasone) Confirm Administered Dose 20 mg .ROUTE .STK-MED ONE Stop: 11/06/18 01:17 Diphenhydramine HCl (Benadryl) 25 mg IVPUSH Q4H PRN PRN Reason: Itching Stop: 11/07/18 00:38 Fentanyl (Sublimaze) Confirm Administered Dose 100 mcg .ROUTE .STK-MED ONE Stop: 11/06/18 01:17 Fentanyl/Bupivacaine HCl (Bwyukvis-Nitdr-Oi 2 Mcg/Ml-0.125%) Confirm Administered Dose 100 mls @ as directed .ROUTE .STK-MED ONE Stop: 11/04/18 22:19 Fentanyl/Bupivacaine HCl (Nizcagaj-Snrsg-Ft 2 Mcg/Ml-0.125%) Confirm Administered Dose 100 mls @ as directed .ROUTE .STK-MED ONE Stop: 11/05/18 08:01 Fentanyl/Bupivacaine HCl (Qnvczkau-Sijdk-Wv 2 Mcg/Ml-0.125%) Confirm Administered Dose 100 mls @ as directed .ROUTE .STK-MED ONE Stop: 11/05/18 14:52 Ampicillin Sodium 2 gm/ Sodium (Chloride) 100 mls @ 200 mls/hr IV Q6H [facility] Fentanyl/Bupivacaine HCl (Zsjmbfvi-Tguer-Qb 2 Mcg/Ml-0.125%) Confirm Administered Dose 100 mls @ as directed .ROUTE .STK-MED ONE Stop: 11/05/18 21:12 Azithromycin 500 mg/ Sodium (Chloride) 250 mls @ 250 mls/hr IV ONETIME ONE Stop: 11/06/18 03:11 Last Admin: 11/06/18 03:11 Dose: 250 mls/hr Ketorolac Tromethamine (Toradol) 30 mg IVPUSH Q6H [facility] Stop: 11/07/18 02:16 Last Admin: 11/07/18 02:44 Dose: 30 mg Lidocaine (Xylocaine-Mpf 2%) Confirm Administered Dose 5 ml .ROUTE .STK-MED ONE Stop: 11/06/18 01:17 Metoclopramide HCl (Reglan) 10 mg IVPUSH ONETIME ONE Stop: 11/05/18 16:37 Last Admin: 11/05/18 16:47 Dose: 10 mg Metoclopramide HCl (Reglan) Confirm Administered Dose 10 mg .ROUTE .STK-MED ONE Stop: 11/06/18 00:15 Morphine Sulfate (Duramorph Pf) Confirm Administered Dose 10 mg .ROUTE .STK-MED ONE Stop: 11/06/18 00:46 Naloxone HCl (Narcan) 0.1 mg IVPUSH ONETIME PRN PRN Reason: Respiratory Depression Stop: 11/07/18 00:38 Ondansetron HCl (Zofran) 4 mg IVPUSH Q6H PRN PRN Reason: Nausea/Vomiting Last Admin: 11/05/18 12:55 Dose: 4 mg Ondansetron HCl (Zofran) Confirm Administered Dose 8 mg .ROUTE .STK-MED ONE Stop: 11/06/18 01:17 Oxycodone/Acetaminophen (Percocet 325-5 Mg) 2 tab PO Q6H PRN PRN Reason: Pain (moderate 4-6) Oxytocin (Pitocin) Confirm Administered Dose 30 unit .ROUTE .STK-MED ONE Stop: 11/06/18 01:17 Oxytocin (Pitocin) Confirm Administered Dose 30 unit .ROUTE .STK-MED ONE Stop: 11/06/18 01:49 - Infant Interaction Infant Disposition, : to Nursery Interaction: Unable to Hold Infant at this Time Infant Feeding: Attempted ; Nursed Fair/Poor (Supplementing with formula while working on ) Support Person: Significant Other - Recovery Exam Fundal Tone: Firm Fundal Level: 1 Fingerbreadths Below Umbilicus Fundal Placement: Midline Lochia Amount: Scant Lochia Color: Rubra/Red Perineum Description: Intact, Minimal Bruising/Swelling Episiotomy/Laceration: None Bladder Status: Voiding Urinary Elimination: Voided - Exam General: Alert, Oriented HEENT: Pupils Equal Neck: Supple Lungs: Clear to Auscultation, Normal Respiratory Effort Cardiovascular: Regular Rate, Regular Rhythm GI/Abdominal Exam: Normal Bowel Sounds, Soft, Non-Tender, No Organomegaly, No Distention, No Abnormal Bruit, No Mass, Pelvis Stable Extremities: Normal Inspection, Normal Range of Motion, Non-Tender, No Pedal Edema, Normal Capillary Refill Skin: Warm, Dry, Intact Wound/Incisions: Healing Well Neurological: No New Focal Deficit Psy/Mental Status: Alert, Normal Affect, Normal Mood - Problem List Review Problem List Initiated/Reviewed/Updated: Yes - Assessment Assessment:: POD 1 s/p primary LTCS fair/poor, supplementing with formula for the time being Pain well controlled Tolerating regular diet - Plan Plan:: Regular diet Pain control PRN Encourage ambulating Routine care Anticipate discharge home POD#2-3 <Gilda Randolph - Last Filed: 11/07/18 07:51> - Patient Data Vital Signs - Most Recent: Last Vital Signs Temp 36.6 C 11/07/18 06:37 Pulse 104 H 11/07/18 06:37 Resp 18 11/07/18 04:50 BP 123/78 11/07/18 06:37 Pulse Ox 100 11/07/18 06:17 I&O - Last 24 Hours: Intake & Output 11/06/18 11/07/18 11/07/18 22:59 06:59 14:59 Intake Total 800 Output Total 1300 Balance -500 Lab Results - Last 24 Hours: Laboratory Results - last 24 hr 11/06/18 Range/Units 13:03 Hgb 10.1 L (12.0-16.0) g/dL Hct 29.2 L (36.0-46.0) % Med Orders - Current: Current Medications Bisacodyl (Dulcolax) 10 mg RECTAL ONETIME PRN PRN Reason: Constipation Butorphanol Tartrate (Stadol) 1 mg IVPUSH Q1H PRN PRN Reason: Pain Last Admin: 11/04/18 22:00 Dose: 1 mg Carboprost Tromethamine (Hemabate Ds) 250 mcg IM ASDIRECTED PRN PRN Reason: Post Hemorrhage Dinoprostone (Cervidil) 10 mg VAG ONETIME PRN PRN Reason: Cervical Ripening Last Admin: 11/03/18 20:40 Dose: 10 mg Diphenhydramine HCl (Benadryl) 25 mg IVPUSH Q6H PRN PRN Reason: Itching or Nausea Diphenhydramine HCl (Benadryl) 25 mg PO Q4H PRN PRN Reason: Itching Docusate Sodium (Colace) 100 mg PO BID [facility] Last Admin: 11/06/18 21:25 Dose: 100 mg Emollient Ointment (Lansinoh Hpa) 0 gm TOP ASDIRECTED PRN PRN Reason: Sore Nipples Fentanyl (Sublimaze) 50 mcg IVPUSH Q1H PRN PRN Reason: Pain (severe 7-10) Lactated Ringer's (Ringers, Lactated) 1,000 mls @ 150 mls/hr IV ASDIRECTED [facility] Last Admin: 11/06/18 07:45 Dose: 150 mls/hr Oxytocin/Sodium Chloride (Oxytocin 30 Unit/500 Ml-Ns) 30 unit in 500 mls @ 999 mls/hr IV TITRATE [facility] Oxytocin/Sodium Chloride (Oxytocin 30 Unit/500 Ml-Ns) 30 unit in 500 mls @ 2 mls/hr IV TITRATE [facility]; Protocol Last Titration: 11/05/18 22:46 Dose: 20 munits/min, 20 mls/hr Tranexamic Acid 1,000 mg/ (Sodium Chloride) 110 mls @ 660 mls/hr IV ONETIME PRN PRN Reason: Bleeding Gentamicin Sulfate 480 mg/ (Dextrose/Water) 112 mls @ 224 mls/hr IV Q24H [facility] Lactated Ringer's (Ringers, Lactated) 1,000 mls @ 125 mls/hr IV ASDIRECTED [facility] Last Admin: 11/06/18 15:15 Dose: 125 mls/hr Ibuprofen (Motrin) 800 mg PO Q8H [facility] Lidocaine HCl (Xylocaine 1%) 50 ml INJECT ONETIME PRN PRN Reason: Laceration repair Methylergonovine Maleate (Methergine) 0.2 mg IM ASDIRECTED PRN PRN Reason: Post Hemorrhage Miscellaneous Information (Remove Patch) 1 ea TRDERM DAILY@2100 [facility] Last Admin: 11/06/18 05:37 Dose: Not Given Misoprostol (Cytotec) 200 mcg PO ONETIME PRN PRN Reason: Post Hemorrhage Nalbuphine HCl (Nubain) 10 mg IVPUSH Q1H PRN PRN Reason: Pain (severe 7-10) Nalbuphine HCl (Nubain) 5 mg IVPUSH ASDIRECTED PRN PRN Reason: Itching Last Admin: 11/06/18 07:46 Dose: 5 mg Nicotine (Habitrol) 14 mg TRDERM DAILY [facility] Last Admin: 11/05/18 21:26 Dose: Not Given Ondansetron HCl (Zofran) 4 mg IVPUSH Q6H PRN PRN Reason: Nausea Ondansetron HCl (Zofran) 4 mg IVPUSH Q4H PRN PRN Reason: Nausea/Vomiting Oxycodone/Acetaminophen (Percocet 325-5 Mg) 1 tab PO Q4H PRN PRN Reason: Pain (moderate 4-6) Oxycodone/Acetaminophen (Percocet 325-5 Mg) 2 tab PO Q4H PRN PRN Reason: Pain (moderate 4-6) Simethicone (Simethicone) 80 mg PO Q4H PRN PRN Reason: Gas Last Admin: 11/07/18 06:33 Dose: 80 mg Sodium Chloride (Saline Flush) 10 ml FLUSH ASDIRECTED PRN PRN Reason: Keep Vein Open Last Admin: 11/05/18 16:51 Dose: 10 ml Sodium Chloride (Saline Flush) 2.5 ml FLUSH ASDIRECTED PRN PRN Reason: Keep Vein Open Sodium Chloride (Normal Saline) 10 ml IV ASDIRECTED PRN PRN Reason: IV Use Sterile Water (Sterile Water For Irrigation) 1,000 ml IRR ASDIRECTED PRN PRN Reason: delivery Terbutaline Sulfate (Brethine) 0.25 mg SUBCUT ASDIRECTED PRN PRN Reason: Tacysystole Witch Valery (Tucks) 1 pad TOP ASDIRECTED PRN PRN Reason: Perineal Comfort Measure Discontinued Medications Bupivacaine HCl (Marcaine 0.5%) Confirm Administered Dose 30 ml .ROUTE .STK-MED ONE Stop: 11/05/18 23:57 Dexamethasone (Dexamethasone) Confirm Administered Dose 20 mg .ROUTE .STK-MED ONE Stop: 11/06/18 01:17 Diphenhydramine HCl (Benadryl) 25 mg IVPUSH Q4H PRN PRN Reason: Itching Stop: 11/07/18 00:38 Fentanyl (Sublimaze) Confirm Administered Dose 100 mcg .ROUTE .STK-MED ONE Stop: 11/06/18 01:17 Fentanyl/Bupivacaine HCl (Hulsfgoq-Djjip-Ux 2 Mcg/Ml-0.125%) Confirm Administered Dose 100 mls @ as directed .ROUTE .STK-MED ONE Stop: 11/04/18 22:19 Fentanyl/Bupivacaine HCl (Hohbnuip-Yvmqh-Nd 2 Mcg/Ml-0.125%) Confirm Administered Dose 100 mls @ as directed .ROUTE .STK-MED ONE Stop: 11/05/18 08:01 Fentanyl/Bupivacaine HCl (Dzlnaxti-Zeoue-Zp 2 Mcg/Ml-0.125%) Confirm Administered Dose 100 mls @ as directed .ROUTE .STK-MED ONE Stop: 11/05/18 14:52 Ampicillin Sodium 2 gm/ Sodium (Chloride) 100 mls @ 200 mls/hr IV Q6H [facility] Fentanyl/Bupivacaine HCl (Kjtdjdnk-Nvplr-Lo 2 Mcg/Ml-0.125%) Confirm Administered Dose 100 mls @ as directed .ROUTE .STK-MED ONE Stop: 11/05/18 21:12 Azithromycin 500 mg/ Sodium (Chloride) 250 mls @ 250 mls/hr IV ONETIME ONE Stop: 11/06/18 03:11 Last Admin: 11/06/18 03:11 Dose: 250 mls/hr Ketorolac Tromethamine (Toradol) 30 mg IVPUSH Q6H [facility] Stop: 11/07/18 02:16 Last Admin: 11/07/18 02:44 Dose: 30 mg Lidocaine (Xylocaine-Mpf 2%) Confirm Administered Dose 5 ml .ROUTE .STK-MED ONE Stop: 11/06/18 01:17 Metoclopramide HCl (Reglan) 10 mg IVPUSH ONETIME ONE Stop: 11/05/18 16:37 Last Admin: 11/05/18 16:47 Dose: 10 mg Metoclopramide HCl (Reglan) Confirm Administered Dose 10 mg .ROUTE .STK-MED ONE Stop: 11/06/18 00:15 Morphine Sulfate (Duramorph Pf) Confirm Administered Dose 10 mg .ROUTE .STK-MED ONE Stop: 11/06/18 00:46 Naloxone HCl (Narcan) 0.1 mg IVPUSH ONETIME PRN PRN Reason: Respiratory Depression Stop: 11/07/18 00:38 Ondansetron HCl (Zofran) 4 mg IVPUSH Q6H PRN PRN Reason: Nausea/Vomiting Last Admin: 11/05/18 12:55 Dose: 4 mg Ondansetron HCl (Zofran) Confirm Administered Dose 8 mg .ROUTE .STK-MED ONE Stop: 11/06/18 01:17 Oxycodone/Acetaminophen (Percocet 325-5 Mg) 2 tab PO Q6H PRN PRN Reason: Pain (moderate 4-6) Oxytocin (Pitocin) Confirm Administered Dose 30 unit .ROUTE .STK-MED ONE Stop: 11/06/18 01:17 Oxytocin (Pitocin) Confirm Administered Dose 30 unit .ROUTE .STK-MED ONE Stop: 11/06/18 01:49 - Problem List & Annotations (1) delivery delivered SNOMED Code(s): 035737603 Code(s): O82 - ENCOUNTER FOR DELIVERY WITHOUT INDICATION Status: Acute Current Visit: Yes - Problem List Review Problem List Initiated/Reviewed/Updated: Yes - Assessment Assessment:: Patient was seen and examined by me and I agree with above.
[2018-11-07] MEDS: Acetaminophen/oxyCODONE 325-5 MG Tab PO PRN ×5 (07:59→23:01)
[2018-11-07] MEDS: Ibuprofen 800 MG Tab PO SCH ×3 (08:49→16:59)
[2018-11-07] MEDS: Docusate Sodium 100 MG Cap PO SCH ×2 (08:50→21:50)
[2018-11-08] MEDS: Acetaminophen/oxyCODONE 325-5 MG Tab PO PRN ×2 (03:19→08:01)
[2018-11-08] MEDS: Ibuprofen 800 MG Tab PO SCH (03:20)
--- NOTE | 2018-11-08 07:37 | PCM.PNPP ---
<Delores Alamo - Last Filed: 11/08/18 07:34> - General Info Date of Service: 11/08/18 Functional Status: Reports: Pain Controlled, Tolerating Diet, Ambulating - Review of Systems General: Reports: No Symptoms. Denies: Fever, Chills HEENT: Reports: No Symptoms. Denies: Headaches Pulmonary: Reports: No Symptoms. Denies: Shortness of Breath Cardiovascular: Reports: No Symptoms. Denies: Chest Pain, Palpitations Gastrointestinal: Reports: Abdominal Pain (Incisional pain - better after getting up to move around ) Genitourinary: Reports: No Symptoms. Denies: Dysuria Musculoskeletal: Reports: No Symptoms Skin: Reports: No Symptoms Neurological: Reports: No Symptoms Psychiatric: Reports: No Symptoms - General Info Date of Service: 11/08/18 - Patient Data Vital Signs - Most Recent: Last Vital Signs Temp 97.4 F 11/08/18 04:00 Pulse 71 11/08/18 04:00 Resp 16 11/08/18 04:00 BP 118/76 11/08/18 04:00 Pulse Ox 97 11/08/18 04:00 Weight - Most Recent: 144.242 kg Med Orders - Current: Current Medications Bisacodyl (Dulcolax) 10 mg RECTAL ONETIME PRN PRN Reason: Constipation Butorphanol Tartrate (Stadol) 1 mg IVPUSH Q1H PRN PRN Reason: Pain Last Admin: 11/04/18 22:00 Dose: 1 mg Carboprost Tromethamine (Hemabate Ds) 250 mcg IM ASDIRECTED PRN PRN Reason: Post Hemorrhage Dinoprostone (Cervidil) 10 mg VAG ONETIME PRN PRN Reason: Cervical Ripening Last Admin: 11/03/18 20:40 Dose: 10 mg Diphenhydramine HCl (Benadryl) 25 mg IVPUSH Q6H PRN PRN Reason: Itching or Nausea Diphenhydramine HCl (Benadryl) 25 mg PO Q4H PRN PRN Reason: Itching Docusate Sodium (Colace) 100 mg PO BID JORDIN Last Admin: 11/07/18 21:50 Dose: 100 mg Emollient Ointment (Lansinoh Hpa) 0 gm TOP ASDIRECTED PRN PRN Reason: Sore Nipples Fentanyl (Sublimaze) 50 mcg IVPUSH Q1H PRN PRN Reason: Pain (severe 7-10) Lactated Ringer's (Ringers, Lactated) 1,000 mls @ 150 mls/hr IV ASDIRECTED [facility] Last Admin: 11/06/18 07:45 Dose: 150 mls/hr Oxytocin/Sodium Chloride (Oxytocin 30 Unit/500 Ml-Ns) 30 unit in 500 mls @ 999 mls/hr IV TITRATE JORDIN Oxytocin/Sodium Chloride (Oxytocin 30 Unit/500 Ml-Ns) 30 unit in 500 mls @ 2 mls/hr IV TITRATE [facility]; Protocol Last Titration: 11/05/18 22:46 Dose: 20 munits/min, 20 mls/hr Tranexamic Acid 1,000 mg/ (Sodium Chloride) 110 mls @ 660 mls/hr IV ONETIME PRN PRN Reason: Bleeding Gentamicin Sulfate 480 mg/ (Dextrose/Water) 112 mls @ 224 mls/hr IV Q24H JORDIN Lactated Ringer's (Ringers, Lactated) 1,000 mls @ 125 mls/hr IV ASDIRECTED [facility] Last Admin: 11/06/18 15:15 Dose: 125 mls/hr Ibuprofen (Motrin) 800 mg PO Q8H [facility] Last Admin: 11/08/18 03:20 Dose: 800 mg Lidocaine HCl (Xylocaine 1%) 50 ml INJECT ONETIME PRN PRN Reason: Laceration repair Methylergonovine Maleate (Methergine) 0.2 mg IM ASDIRECTED PRN PRN Reason: Post Hemorrhage Miscellaneous Information (Remove Patch) 1 ea TRDERM DAILY@2100 [facility] Last Admin: 11/06/18 05:37 Dose: Not Given Misoprostol (Cytotec) 200 mcg PO ONETIME PRN PRN Reason: Post Hemorrhage Nalbuphine HCl (Nubain) 10 mg IVPUSH Q1H PRN PRN Reason: Pain (severe 7-10) Nalbuphine HCl (Nubain) 5 mg IVPUSH ASDIRECTED PRN PRN Reason: Itching Last Admin: 11/06/18 07:46 Dose: 5 mg Nicotine (Habitrol) 14 mg TRDERM DAILY [facility] Last Admin: 11/05/18 21:26 Dose: Not Given Ondansetron HCl (Zofran) 4 mg IVPUSH Q6H PRN PRN Reason: Nausea Ondansetron HCl (Zofran) 4 mg IVPUSH Q4H PRN PRN Reason: Nausea/Vomiting Oxycodone/Acetaminophen (Percocet 325-5 Mg) 1 tab PO Q4H PRN PRN Reason: Pain (moderate 4-6) Last Admin: 11/07/18 23:01 Dose: 1 tab Oxycodone/Acetaminophen (Percocet 325-5 Mg) 2 tab PO Q4H PRN PRN Reason: Pain (moderate 4-6) Last Admin: 11/08/18 03:19 Dose: 2 tab Simethicone (Simethicone) 80 mg PO Q4H PRN PRN Reason: Gas Last Admin: 11/07/18 06:33 Dose: 80 mg Sodium Chloride (Saline Flush) 10 ml FLUSH ASDIRECTED PRN PRN Reason: Keep Vein Open Last Admin: 11/05/18 16:51 Dose: 10 ml Sodium Chloride (Saline Flush) 2.5 ml FLUSH ASDIRECTED PRN PRN Reason: Keep Vein Open Sodium Chloride (Normal Saline) 10 ml IV ASDIRECTED PRN PRN Reason: IV Use Sterile Water (Sterile Water For Irrigation) 1,000 ml IRR ASDIRECTED PRN PRN Reason: delivery Terbutaline Sulfate (Brethine) 0.25 mg SUBCUT ASDIRECTED PRN PRN Reason: Tacysystole Witch Valery (Tucks) 1 pad TOP ASDIRECTED PRN PRN Reason: Perineal Comfort Measure Discontinued Medications Bupivacaine HCl (Marcaine 0.5%) Confirm Administered Dose 30 ml .ROUTE .STK-MED ONE Stop: 11/05/18 23:57 Dexamethasone (Dexamethasone) Confirm Administered Dose 20 mg .ROUTE .STK-MED ONE Stop: 11/06/18 01:17 Diphenhydramine HCl (Benadryl) 25 mg IVPUSH Q4H PRN PRN Reason: Itching Stop: 11/07/18 00:38 Fentanyl (Sublimaze) Confirm Administered Dose 100 mcg .ROUTE .STK-MED ONE Stop: 11/06/18 01:17 Fentanyl/Bupivacaine HCl (Iidndthh-Bkzqy-Xl 2 Mcg/Ml-0.125%) Confirm Administered Dose 100 mls @ as directed .ROUTE .STK-MED ONE Stop: 11/04/18 22:19 Fentanyl/Bupivacaine HCl (Yimammdi-Nrqlb-Dt 2 Mcg/Ml-0.125%) Confirm Administered Dose 100 mls @ as directed .ROUTE .STK-MED ONE Stop: 11/05/18 08:01 Fentanyl/Bupivacaine HCl (Fngxllan-Dlkfg-Za 2 Mcg/Ml-0.125%) Confirm Administered Dose 100 mls @ as directed .ROUTE .STK-MED ONE Stop: 11/05/18 14:52 Ampicillin Sodium 2 gm/ Sodium (Chloride) 100 mls @ 200 mls/hr IV Q6H JORDIN Fentanyl/Bupivacaine HCl (Qbzkjdon-Nelrz-Ep 2 Mcg/Ml-0.125%) Confirm Administered Dose 100 mls @ as directed .ROUTE .STK-MED ONE Stop: 11/05/18 21:12 Azithromycin 500 mg/ Sodium (Chloride) 250 mls @ 250 mls/hr IV ONETIME ONE Stop: 11/06/18 03:11 Last Admin: 11/06/18 03:11 Dose: 250 mls/hr Ketorolac Tromethamine (Toradol) 30 mg IVPUSH Q6H [facility] Stop: 11/07/18 02:16 Last Admin: 11/07/18 02:44 Dose: 30 mg Lidocaine (Xylocaine-Mpf 2%) Confirm Administered Dose 5 ml .ROUTE .STK-MED ONE Stop: 11/06/18 01:17 Metoclopramide HCl (Reglan) 10 mg IVPUSH ONETIME ONE Stop: 11/05/18 16:37 Last Admin: 11/05/18 16:47 Dose: 10 mg Metoclopramide HCl (Reglan) Confirm Administered Dose 10 mg .ROUTE .STK-MED ONE Stop: 11/06/18 00:15 Morphine Sulfate (Duramorph Pf) Confirm Administered Dose 10 mg .ROUTE .STK-MED ONE Stop: 11/06/18 00:46 Naloxone HCl (Narcan) 0.1 mg IVPUSH ONETIME PRN PRN Reason: Respiratory Depression Stop: 11/07/18 00:38 Ondansetron HCl (Zofran) 4 mg IVPUSH Q6H PRN PRN Reason: Nausea/Vomiting Last Admin: 11/05/18 12:55 Dose: 4 mg Ondansetron HCl (Zofran) Confirm Administered Dose 8 mg .ROUTE .STK-MED ONE Stop: 11/06/18 01:17 Oxycodone/Acetaminophen (Percocet 325-5 Mg) 2 tab PO Q6H PRN PRN Reason: Pain (moderate 4-6) Oxytocin (Pitocin) Confirm Administered Dose 30 unit .ROUTE .STK-MED ONE Stop: 11/06/18 01:17 Oxytocin (Pitocin) Confirm Administered Dose 30 unit .ROUTE .STK-MED ONE Stop: 11/06/18 01:49 - Infant Interaction Disposition, : [place] in Room with Family Infant Interaction: Holding Feeding: Attempted ; Nursed Fair/Poor (Supplementing with formula while working on - difficulty with latch) Support Person: Significant Other - Recovery Exam Fundal Tone: Firm Fundal Level: 2 Fingerbreadths Below Umbilicus Fundal Placement: Midline Lochia Amount: Scant Lochia Color: Rubra/Red Perineum Description: Intact, Minimal Bruising/Swelling Episiotomy/Laceration: None Bladder Status: Voiding Urinary Elimination: Voided - Exam General: Alert, Oriented HEENT: Pupils Equal Neck: Supple Lungs: Clear to Auscultation, Normal Respiratory Effort Cardiovascular: Regular Rate, Regular Rhythm GI/Abdominal Exam: Normal Bowel Sounds, Soft, Non-Tender, No Organomegaly, No Distention, No Abnormal Bruit, No Mass, Pelvis Stable Extremities: Normal Inspection, Normal Range of Motion, Non-Tender, No Pedal Edema, Normal Capillary Refill Skin: Warm, Dry, Intact Wound/Incisions: Healing Well Neurological: No New Focal Deficit Psy/Mental Status: Alert, Normal Affect, Normal Mood - Problem List Review Problem List Initiated/Reviewed/Updated: Yes - Assessment Assessment:: PPD2 Trouble with latch, supplementing with formula while working on Pain is well controlled Ambulating Would like to discharge home today - Plan Plan:: Regular diet Pain control PRN Encourage ambulating Routine care May discharge home today <Gilda Randolph - Last Filed: 11/08/18 08:41> - Patient Data Vital Signs - Most Recent: Last Vital Signs Temp 36.1 C 11/08/18 07:30 Pulse 93 11/08/18 07:30 Resp 18 11/08/18 07:30 BP 121/84 11/08/18 07:30 Pulse Ox 97 11/08/18 07:30 Med Orders - Current: Current Medications Bisacodyl (Dulcolax) 10 mg RECTAL ONETIME PRN PRN Reason: Constipation Butorphanol Tartrate (Stadol) 1 mg IVPUSH Q1H PRN PRN Reason: Pain Last Admin: 11/04/18 22:00 Dose: 1 mg Carboprost Tromethamine (Hemabate Ds) 250 mcg IM ASDIRECTED PRN PRN Reason: Post Hemorrhage Dinoprostone (Cervidil) 10 mg VAG ONETIME PRN PRN Reason: Cervical Ripening Last Admin: 11/03/18 20:40 Dose: 10 mg Diphenhydramine HCl (Benadryl) 25 mg IVPUSH Q6H PRN PRN Reason: Itching or Nausea Diphenhydramine HCl (Benadryl) 25 mg PO Q4H PRN PRN Reason: Itching Docusate Sodium (Colace) 100 mg PO BID JORDIN Last Admin: 11/08/18 08:01 Dose: 100 mg Emollient Ointment (Lansinoh Hpa) 0 gm TOP ASDIRECTED PRN PRN Reason: Sore Nipples Last Admin: 11/08/18 08:00 Dose: 7 gram Fentanyl (Sublimaze) 50 mcg IVPUSH Q1H PRN PRN Reason: Pain (severe 7-10) Lactated Ringer's (Ringers, Lactated) 1,000 mls @ 150 mls/hr IV ASDIRECTED [facility] Last Admin: 11/06/18 07:45 Dose: 150 mls/hr Oxytocin/Sodium Chloride (Oxytocin 30 Unit/500 Ml-Ns) 30 unit in 500 mls @ 999 mls/hr IV TITRATE [facility] Oxytocin/Sodium Chloride (Oxytocin 30 Unit/500 Ml-Ns) 30 unit in 500 mls @ 2 mls/hr IV TITRATE [facility]; Protocol Last Titration: 11/05/18 22:46 Dose: 20 munits/min, 20 mls/hr Tranexamic Acid 1,000 mg/ (Sodium Chloride) 110 mls @ 660 mls/hr IV ONETIME PRN PRN Reason: Bleeding Gentamicin Sulfate 480 mg/ (Dextrose/Water) 112 mls @ 224 mls/hr IV Q24H [facility] Lactated Ringer's (Ringers, Lactated) 1,000 mls @ 125 mls/hr IV ASDIRECTED [facility] Last Admin: 11/06/18 15:15 Dose: 125 mls/hr Ibuprofen (Motrin) 800 mg PO Q8H [facility] Last Admin: 11/08/18 03:20 Dose: 800 mg Lidocaine HCl (Xylocaine 1%) 50 ml INJECT ONETIME PRN PRN Reason: Laceration repair Methylergonovine Maleate (Methergine) 0.2 mg IM ASDIRECTED PRN PRN Reason: Post Hemorrhage Miscellaneous Information (Remove Patch) 1 ea TRDERM DAILY@2100 [facility] Last Admin: 11/06/18 05:37 Dose: Not Given Misoprostol (Cytotec) 200 mcg PO ONETIME PRN PRN Reason: Post Hemorrhage Nalbuphine HCl (Nubain) 10 mg IVPUSH Q1H PRN PRN Reason: Pain (severe 7-10) Nalbuphine HCl (Nubain) 5 mg IVPUSH ASDIRECTED PRN PRN Reason: Itching Last Admin: 11/06/18 07:46 Dose: 5 mg Nicotine (Habitrol) 14 mg TRDERM DAILY [facility] Last Admin: 11/05/18 21:26 Dose: Not Given Ondansetron HCl (Zofran) 4 mg IVPUSH Q6H PRN PRN Reason: Nausea Ondansetron HCl (Zofran) 4 mg IVPUSH Q4H PRN PRN Reason: Nausea/Vomiting Oxycodone/Acetaminophen (Percocet 325-5 Mg) 1 tab PO Q4H PRN PRN Reason: Pain (moderate 4-6) Last Admin: 11/07/18 23:01 Dose: 1 tab Oxycodone/Acetaminophen (Percocet 325-5 Mg) 2 tab PO Q4H PRN PRN Reason: Pain (moderate 4-6) Last Admin: 11/08/18 08:01 Dose: 2 tab Simethicone (Simethicone) 80 mg PO Q4H PRN PRN Reason: Gas Last Admin: 11/08/18 08:01 Dose: 80 mg Sodium Chloride (Saline Flush) 10 ml FLUSH ASDIRECTED PRN PRN Reason: Keep Vein Open Last Admin: 11/05/18 16:51 Dose: 10 ml Sodium Chloride (Saline Flush) 2.5 ml FLUSH ASDIRECTED PRN PRN Reason: Keep Vein Open Sodium Chloride (Normal Saline) 10 ml IV ASDIRECTED PRN PRN Reason: IV Use Sterile Water (Sterile Water For Irrigation) 1,000 ml IRR ASDIRECTED PRN PRN Reason: delivery Terbutaline Sulfate (Brethine) 0.25 mg SUBCUT ASDIRECTED PRN PRN Reason: Tacysystole [place] Valery (Tucks) 1 pad TOP ASDIRECTED PRN PRN Reason: Perineal Comfort Measure Discontinued Medications Bupivacaine HCl (Marcaine 0.5%) Confirm Administered Dose 30 ml .ROUTE .STK-MED ONE Stop: 11/05/18 23:57 Dexamethasone (Dexamethasone) Confirm Administered Dose 20 mg .ROUTE .STK-MED ONE Stop: 11/06/18 01:17 Diphenhydramine HCl (Benadryl) 25 mg IVPUSH Q4H PRN PRN Reason: Itching Stop: 11/07/18 00:38 Fentanyl (Sublimaze) Confirm Administered Dose 100 mcg .ROUTE .STK-MED ONE Stop: 11/06/18 01:17 Fentanyl/Bupivacaine HCl (Kpflojce-Ctyho-Hw 2 Mcg/Ml-0.125%) Confirm Administered Dose 100 mls @ as directed .ROUTE .STK-MED ONE Stop: 11/04/18 22:19 Fentanyl/Bupivacaine HCl (Vwwtevpq-Ybhyu-Za 2 Mcg/Ml-0.125%) Confirm Administered Dose 100 mls @ as directed .ROUTE .STK-MED ONE Stop: 11/05/18 08:01 Fentanyl/Bupivacaine HCl (Jjcjxjiz-Fxtbv-Vw 2 Mcg/Ml-0.125%) Confirm Administered Dose 100 mls @ as directed .ROUTE .STK-MED ONE Stop: 11/05/18 14:52 Ampicillin Sodium 2 gm/ Sodium (Chloride) 100 mls @ 200 mls/hr IV Q6H JORDIN Fentanyl/Bupivacaine HCl (Afdyizaa-Dpimr-Tt 2 Mcg/Ml-0.125%) Confirm Administered Dose 100 mls @ as directed .ROUTE .STK-MED ONE Stop: 11/05/18 21:12 Azithromycin 500 mg/ Sodium (Chloride) 250 mls @ 250 mls/hr IV ONETIME ONE Stop: 11/06/18 03:11 Last Admin: 11/06/18 03:11 Dose: 250 mls/hr Ketorolac Tromethamine (Toradol) 30 mg IVPUSH Q6H JORDIN Stop: 11/07/18 02:16 Last Admin: 11/07/18 02:44 Dose: 30 mg Lidocaine (Xylocaine-Mpf 2%) Confirm Administered Dose 5 ml .ROUTE .STK-MED ONE Stop: 11/06/18 01:17 Metoclopramide HCl (Reglan) 10 mg IVPUSH ONETIME ONE Stop: 11/05/18 16:37 Last Admin: 11/05/18 16:47 Dose: 10 mg Metoclopramide HCl (Reglan) Confirm Administered Dose 10 mg .ROUTE .STK-MED ONE Stop: 11/06/18 00:15 Morphine Sulfate (Duramorph Pf) Confirm Administered Dose 10 mg .ROUTE .STK-MED ONE Stop: 11/06/18 00:46 Naloxone HCl (Narcan) 0.1 mg IVPUSH ONETIME PRN PRN Reason: Respiratory Depression Stop: 11/07/18 00:38 Ondansetron HCl (Zofran) 4 mg IVPUSH Q6H PRN PRN Reason: Nausea/Vomiting Last Admin: 11/05/18 12:55 Dose: 4 mg Ondansetron HCl (Zofran) Confirm Administered Dose 8 mg .ROUTE .STK-MED ONE Stop: 11/06/18 01:17 Oxycodone/Acetaminophen (Percocet 325-5 Mg) 2 tab PO Q6H PRN PRN Reason: Pain (moderate 4-6) Oxytocin (Pitocin) Confirm Administered Dose 30 unit .ROUTE .STK-MED ONE Stop: 11/06/18 01:17 Oxytocin (Pitocin) Confirm Administered Dose 30 unit .ROUTE .STK-MED ONE Stop: 11/06/18 01:49 - Problem List & Annotations (1) delivery delivered SNOMED Code(s): 443330910 Code(s): O82 - ENCOUNTER FOR DELIVERY WITHOUT INDICATION Status: Acute Current Visit: Yes - Problem List Review Problem List Initiated/Reviewed/Updated: Yes - Assessment Assessment:: Patient was seen and examined by me and I agree with above. BP's are much better with pain under control. Reviewed hypertensive precautions and routine precautions.
[2018-11-08] MEDS: Simethicone 80 MG Tab.Chew PO PRN (08:01)
[2018-11-08] MEDS: Docusate Sodium 100 MG Cap PO SCH (08:01)
== END 2018-11-08 12:15 | disposition home or self-care (01) | DRG 788 ==
LOC: MW.OB 01:02 → UNDOADMOB 17:12 → MW.OB 11-04 14:42 → EDSTATUS 11-04 14:44 → OBSVTOIN 11-06 01:02 → MW.OB 11-06 06:51
PROVIDERS: ADMIT Obstetrics & Gynecology; ATTEND Obstetrics & Gynecology
PROC: 10D00Z1 Extraction of Products of Conception, Low, Open Approach (ICD-10-PCS; principal; 2018-11-06)
PROC: 4A1HXCZ Monitoring of Products of Conception, Cardiac Rate, External Approach (ICD-10-PCS; 2018-11-06)
PROC: 10H07YZ Insertion of Other Device into Products of Conception, Via Natural or Artificial Opening (ICD-10-PCS; 2018-11-06)
DX: O41.03X0 Oligohydramnios, third trimester, not applicable or unspecified (principal); O48.0 Post-term pregnancy; O13.4 Gestational [pregnancy-induced] hypertension without significant proteinuria, complicating childbirth; O76 Abnormality in fetal heart rate and rhythm complicating labor and delivery; E66.01 Morbid (severe) obesity due to excess calories; O99.214 Obesity complicating childbirth; O99.334 Smoking (tobacco) complicating childbirth; F17.210 Nicotine dependence, cigarettes, uncomplicated; O99.62 Diseases of the digestive system complicating childbirth; K21.9 Gastro-esophageal reflux disease without esophagitis; Z3A.40 40 weeks gestation of pregnancy; Z37.0 Single live birth
CPT/HCPCS: 01967; 01968; 36415; 51702; 59025; 76819; 76819-26; 80053; 82570; 83615; 84156; 85014; 85018; 85027; 86850; 86900; 86901; 88307; A9270-GY; J0456; J0595; J1100; J1885; J2001; J2270; J2300; J2405; J2590; J2765; J3010; J3490; J7050; J7120

== ENCOUNTER 2018-11-10 22:07 | Observation (INO) | payer OTHER ==
--- NOTE | 2018-11-10 22:40 | EDM.PDOC ---
ED HPI GENERAL MEDICAL PROBLEM - General Chief Complaint: General Stated Complaint: PT HAS FEVER Time Seen by Provider: 11/10/18 22:30 - History of Present Illness INITIAL COMMENTS - FREE TEXT/NARRATIVE: HISTORY AND PHYSICAL: History of present illness: Patient is 28-year-old white female who is 5 days status post for failure to progress who presents with a concern of low-grade tactile fever with a MAXIMUM TEMPERATURE of 99 and headache. She's been on Percocet for postoperative pain she denies vomiting denies vaginal discharge urinary symptoms and states her incisional pain is been unremarkable. There's been no cough no shortness of breath she has had some peripheral edema she denies preeclampsia Review of systems: As per history of present illness and below otherwise all systems reviewed and negative. Past medical history: As per history of present illness and as reviewed below otherwise noncontributory. Surgical history: As per history of present illness and as reviewed below otherwise noncontributory. Social history: No reported history of drug or alcohol abuse. Family history: As per history of present illness and as reviewed below otherwise noncontributory. Physical exam: HEENT: Atraumatic, normocephalic, pupils reactive, negative for conjunctival pallor or scleral icterus, mucous membranes moist, throat clear, neck supple, nontender, trachea midline. Lungs: Clear to auscultation, breath sounds equal bilaterally, chest nontender. Heart: S1S2, regular, negative for clicks, rubs, or JVD. Abdomen: Soft, nondistended, wound is healing well without evidence of infection is no localized tenderness no rebound no guarding. Negative for masses or hepatosplenomegaly. Negative for costovertebral tenderness. Pelvis: Stable nontender. Genitourinary: Deferred. Rectal: Deferred. Extremities: Atraumatic, negative for cords or calf pain. Neurovascular unremarkable. 2+ edema noted inferiorly Neuro: Awake, alert, oriented. Cranial nerves II through XII unremarkable. Cerebellum unremarkable. Motor and sensory unremarkable throughout. Exam nonfocal. Diagnostics: CBC CMP UA blood cultures 2 lactic acid chest x-ray Therapeutics: Saline at 125 an hour Impression: #1 medical screening exam #2 observation 5 days status post section #3 cephalgia Definitive disposition and diagnosis as appropriate pending reevaluation and review of above. headache Pain Score (Numeric/FACES): 4 - Related Data Allergies Allergy/AdvReac Type Severity Reaction Status Date / Time hydromorphone HCl Allergy Itching Verified 11/10/18 22:19 [From Dilaudid] Home Meds: Home Meds Omeprazole 20 mg PO DAILY 11/03/18 [History] Acetaminophen/oxyCODONE [Percocet 325-5 MG] 2 tab PO Q6HR PRN #20 tablet [Rx] Ibuprofen [Motrin] 800 mg PO Q8H #30 tablet 11/08/18 [Rx] Docusate Sodium [Colace] 100 mg PO BID 11/10/18 [History] Past Medical History HEENT History: Reports: None Cardiovascular History: Reports: None Respiratory History: Reports: None Gastrointestinal History: Reports: GERD Genitourinary History: Reports: None 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: Musculoskeletal History: Reports: None Neurological History: Reports: None Psychiatric History: Reports: None Endocrine/Metabolic History: Reports: Obesity/BMI 30+ Hematologic History: Reports: None Immunologic History: Reports: None Oncologic (Cancer) History: Reports: None Dermatologic History: Reports: None - Infectious Disease History Infectious Disease History: Reports: Chicken Pox - Past Surgical History HEENT Surgical History: Reports: LASIK, Tonsillectomy Female Surgical History: Reports: Section, Other (See Below) Other Female Surgeries/Procedures: patient states when she was 4 she had 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 ED EXAM, GENERAL - Physical Exam Exam: See Below (See dictation) Course - Vital Signs Last Recorded V/S: Last Vital Signs Temp 36.3 C 11/10/18 22:16 Pulse 108 H 11/10/18 22:16 Resp 16 11/10/18 22:16 BP 172/90 H 11/10/18 22:16 Pulse Ox 98 08/15/19 22:16 - Orders/Labs/Meds Orders: Active Orders 24 hr Category Date Time Status Chest 1V Frontal [CR] Stat Exams 11/10/18 22:35 Taken CBC WITH AUTO DIFF [HEME] Stat Lab 11/10/18 22:35 Ordered COMPREHENSIVE METABOLIC PN,CMP [CHEM] Stat Lab 11/10/18 22:35 Ordered CULTURE BLOOD [BC] Stat Lab 11/10/18 22:35 Ordered CULTURE BLOOD [BC] Stat Lab 11/10/18 22:35 Ordered LACTATE WITH REFLEX [BG] Stat Lab 11/10/18 22:35 Ordered UA RFX ADELA AND CULT IF INDIC [URIN] Stat Lab 11/10/18 22:35 Ordered Sodium Chloride 0.9% [Normal Saline] 1,000 ml Med 11/10/18 22:45 Active IV STAT Blood Culture x2 Reflex Set [OM.PC] Stat Oth 11/10/18 22:35 Ordered Medication Orders Sodium Chloride (Normal Saline) 1,000 mls @ 125 mls/hr IV STAT JORDIN Last Admin: 11/10/18 22:48 Dose: 125 mls/hr Meds: Medications Generic Name Dose Route Start Last Admin Trade Name Freq PRN Reason Stop Dose Admin Sodium Chloride 1,000 mls @ 125 mls/hr 11/10/18 22:45 11/10/18 22:48 Normal Saline IV 125 mls/hr STAT JORDIN Administration Departure - Departure Time of Disposition: 22:51 Disposition: Refer to Observation Condition: Good Clinical Impression: hypertension - Discharge Information Referrals: Gilda Randolph MD [Primary Care Provider] - Forms: ED Department Discharge - My Orders Last 24 Hours: My Active Orders 11/10/18 22:35 Chest 1V Frontal [CR] Stat CBC WITH AUTO DIFF [HEME] Stat COMPREHENSIVE METABOLIC PN,CMP [CHEM] Stat CULTURE BLOOD [BC] Stat CULTURE BLOOD [BC] Stat LACTATE WITH REFLEX [BG] Stat UA RFX ADELA AND CULT IF INDIC [URIN] Stat Blood Culture x2 Reflex Set [OM.PC] Stat 11/10/18 22:45 Sodium Chloride 0.9% [Normal Saline] 1,000 ml IV STAT - Assessment/Plan Last 24 Hours: My Active Orders 11/10/18 22:35 Chest 1V Frontal [CR] Stat CBC WITH AUTO DIFF [HEME] Stat COMPREHENSIVE METABOLIC PN,CMP [CHEM] Stat CULTURE BLOOD [BC] Stat CULTURE BLOOD [BC] Stat LACTATE WITH REFLEX [BG] Stat UA RFX ADELA AND CULT IF INDIC [URIN] Stat Blood Culture x2 Reflex Set [OM.PC] Stat 11/10/18 22:45 Sodium Chloride 0.9% [Normal Saline] 1,000 ml IV STAT
[2018-11-10] MEDS: Sodium Chloride 0.9% 1,000 ML IV SCH (22:48)
[2018-11-10] MEDS ORDERED: Calcium Gluconate 10% 1 GM/10 ML SDV IV PRN (23:26)
[2018-11-10] MEDS ORDERED: Magnesium Sulfate/Water 4 GM in Premix Bag 1 BAG IV ONE (23:26)
[2018-11-10] MEDS ORDERED: Sodium Chloride 0.9% 10 ML Syringe FLUSH PRN (23:26)
[2018-11-10] MEDS ORDERED: Sodium Chloride 0.9% 2.5 ML Syringe FLUSH PRN (23:26)
[2018-11-10] MEDS ORDERED: Sodium Chloride 0.9% 10 ML SDV IV PRN (23:26)
[2018-11-10 23:35] LABS: CHLORIDE,CL 106 mmol/L (98-107); SODIUM,NA 142 mmol/L (136-145)
--- NOTE | 2018-11-10 23:36 | CR ---
Clinical INDICATION: section 5 days ago. Dyspnea. FINDINGS: The heart is magnified by the AP technique. The lungs are clear. The pulmonary vasculature and pleural surfaces are unremarkable. The bony thorax appears intact. IMPRESSION: No acute process identified. Dictated by Jim Arcos MD @ Nov 10 2018 11:34PM Signed by Dr. Jim Arcos @ Nov 10 2018 11:35PM
--- NOTE | 2018-11-10 23:48 | PCM.SN ---
- Free Text/Narrative Note: H&P dictated #[id number]
[2018-11-11] MEDS: Acetaminophen/oxyCODONE 325-5 MG Tab PO PRN ×2 (00:36→04:38)
[2018-11-11] MEDS: Sodium Chloride 0.9% 1,000 ML IV SCH ×2 (00:41→08:22)
[2018-11-11] MEDS: Magnesium Sulfate/Water 20 GM/500 ML BAG IV SCH ×3 (02:03→22:11)
--- NOTE | 2018-11-11 03:04 | HP ---
DATE OF : 1990 PRIMARY CARE PHYSICIAN: Gilda Randolph M.D. CHIEF COMPLAINT: Headache and swelling. HISTORY OF PRESENT ILLNESS: This is a 28-year-old G1, P1-0-0-1, on postoperative day #4 status post primary low transverse section for failure to progress. She developed gestational hypertension throughout her labor course. She was discharged home on postoperative day #2 in stable condition. On the morning of postoperative day #4, the patient developed a headache that she describes is in the front and back of her head. She states nothing helps make the pain go away, including Percocet, which she was taking for her postoperative pain. In addition, she reported increased swelling of her extremities and dizziness. She denies right upper quadrant pain or vision changes. She reports feeling feverish at home, however, took a temperature, and it was 99 degrees. She came into the ER. PAST MEDICAL HISTORY: Obesity and acid reflux. PAST SURGICAL HISTORY: Primary low-transverse section on November 06, 2018; left ureter reimplantation at age 4; left arm surgery in 2010; and tonsillectomy in 2008. PAST OBSTETRICAL HISTORY: G1, P1-0-0-1. Primary low-transverse section at 40 weeks and 6 days gestation for failure to progress; live female , weight 3640 g. PAST GYNECOLOGIC HISTORY: She denies any abnormal Pap smear and denies a history of STDs. FAMILY HISTORY: Mother and father with hypertension. SOCIAL HISTORY: She denies tobacco, alcohol, or drug abuse. REVIEW OF SYSTEMS: Negative, except in HPI. ALLERGIES: No known drug allergies. MEDICATIONS: 1. vitamin. 2. Percocet 5/325 mg. PHYSICAL EXAMINATION: VITAL SIGNS: Initial blood pressure 172/90, repeat 140s over 80s to 150s over 90s; heart rate 108; respiratory rate 16; temperature 36.3; and oxygen saturation 98%. GENERAL: No apparent distress. CARDIOVASCULAR: Regular rate and rhythm. LUNGS: Clear to auscultation bilaterally. ABDOMEN: Obese. Soft and nondistended. Appropriately tender to palpation. Incision is clean, dry, and intact without surrounding erythema. EXTREMITIES: 2+ pitting edema. 1+ deep tendon reflexes. No clonus. ASSESSMENT AND PLAN: This is a 28-year-old G1, P1-0-0-1, postoperative day #4 after a primary low- transverse section for failure to progress at 40 weeks and 6 days. 1. preeclampsia. The patient has had an unrelenting headache and elevated blood pressures. We will admit for observation and 24 hours of magnesium for seizure prophylaxis. Monitor blood pressure and urine output closely. If blood pressures remain over 160/110, we will begin hypertension protocol. The patient may benefit from short-term antihypertensive therapy in the period. We will continue to monitor blood pressures before beginning any medication. 2. Postoperative care. Continue Percocet 5/325 mg as needed for pain. 3. Deep venous thrombosis prophylaxis. Sequential compression devices for patient in bed. [id number] / MODL /[id number] WAYNE
[2018-11-11] MEDS ORDERED: Labetalol 100 MG/20 ML MDV IVPUSH PRN (08:11)
[2018-11-11] MEDS: Labetalol 100 MG Tab PO SCH ×2 (08:55→20:01)
--- NOTE | 2018-11-11 09:22 | PCM.PN ---
- General Info Date of Service: 11/11/18 Subjective Update: Patient is tolerating magnesium well, she reports persistent headache, no visual changes. Denies shortness of breath or chest pain. Functional Status: Reports: Pain Controlled, Tolerating Diet (clears), Ambulating (bedrest with bathroom privileges. ), Urinating - Review of Systems General: Reports: No Symptoms HEENT: Reports: No Symptoms Pulmonary: Reports: No Symptoms Cardiovascular: Reports: No Symptoms Gastrointestinal: Reports: No Symptoms Genitourinary: Reports: No Symptoms Musculoskeletal: Reports: No Symptoms Skin: Reports: No Symptoms Neurological: Reports: Headache Psychiatric: Reports: No Symptoms - Patient Data Vitals - Most Recent: Last Vital Signs Temp 36.3 C 11/11/18 04:00 Pulse 100 11/11/18 08:55 Resp 16 11/11/18 04:00 BP 142/90 H 11/11/18 08:55 Pulse Ox 95 11/11/18 04:00 Weight - Most Recent: 148.007 kg I&O - Last 24 Hours: Intake & Output 11/10/18 11/11/18 11/11/18 22:59 06:59 14:59 Intake Total 679 Output Total 600 Balance 79 Lab Results Last 24 Hours: Laboratory Results - last 24 hr 11/10/18 11/10/18 11/10/18 Range/Units 23:04 23:04 23:04 WBC 13.14 H (4.0-11.0) K/uL RBC 3.18 L (4.30-5.90) M/uL Hgb 9.2 L (12.0-16.0) g/dL Hct 27.6 L (36.0-46.0) % MCV 86.8 (80.0-98.0) fL MCH 28.9 (27.0-32.0) pg MCHC 33.3 (31.0-37.0) g/dL RDW Std Deviation 44.3 (28.0-62.0) fl RDW Coeff of Caitlin 14 (11.0-15.0) % Plt Count 240 (150-400) K/uL MPV 9.80 (7.40-12.00) fL Add Manual Diff YES Neutrophils % (Manual) 63 (48.0-80.0) % Band Neutrophils % 10 % Lymphocytes % (Manual) 16 (16.0-40.0) % Monocytes % (Manual) 6 (0.0-15.0) % Eosinophils % (Manual) 4 (0.0-7.0) % Basophils % (Manual) 1 (0.0-1.5) % Nucleated RBC % 0.0 /100WBC Absolute Seg Neuts 8.3 H (1.4-5.7) Band Neutrophils # 1.3 Lymphocytes # (Manual) 2.1 (0.6-2.4) Monocytes # (Manual) 0.8 (0.0-0.8) Eosinophils # (Manual) 0.5 (0.0-0.7) Basophils # (Manual) 0.1 (0.0-0.1) Nucleated RBCs # 0 K/uL Lactate 1.5 (0.20-2.00) mmol/L Sodium 142 (136-145) mmol/L Potassium 3.9 (3.5-5.1) mmol/L Chloride 106 (98-107) mmol/L Carbon Dioxide 26.6 (21.0-32.0) mmol/L BUN 15 (7.0-18.0) mg/dL Creatinine 0.9 (0.6-1.0) mg/dL Est Cr Clr Drug Dosing 95.55 mL/min Estimated GFR (MDRD) > 60.0 ml/min Glucose 102 (74-106) mg/dL Calcium 8.7 (8.5-10.1) mg/dL Total Bilirubin 0.2 (0.2-1.0) mg/dL AST 13 L (15-37) IU/L ALT 25 (14-63) IU/L Alkaline Phosphatase 94 (46-116) U/L Total Protein 5.9 L (6.4-8.2) g/dL Albumin 2.1 L (3.4-5.0) g/dL Globulin 3.8 (2.6-4.0) g/dL Albumin/Globulin Ratio 0.6 L (0.9-1.6) Urine Color Urine Appearance Urine pH (5.0-8.0) Ur Specific [place] (1.001-1.035) Urine Protein (NEGATIVE) mg/dL Urine Glucose (UA) (NEGATIVE) mg/dL Urine Ketones (NEGATIVE) mg/dL Urine Occult Blood (NEGATIVE) Urine Nitrite (NEGATIVE) Urine Bilirubin (NEGATIVE) Urine Urobilinogen (<2.0) EU/dL Ur Leukocyte Esterase (NEGATIVE) Urine RBC (0-2/HPF) Urine WBC (0-5/HPF) Ur Epithelial Cells (NONE-FEW) Urine Bacteria (NEGATIVE) Blood Type Antibody Screen 11/10/18 11/11/18 Range/Units 23:54 05:30 WBC (4.0-11.0) K/uL RBC (4.30-5.90) M/uL Hgb (12.0-16.0) g/dL Hct (36.0-46.0) % MCV (80.0-98.0) fL MCH (27.0-32.0) pg MCHC (31.0-37.0) g/dL RDW Std Deviation (28.0-62.0) fl RDW Coeff of Caitlin (11.0-15.0) % Plt Count (150-400) K/uL MPV (7.40-12.00) fL Add Manual Diff Neutrophils % (Manual) (48.0-80.0) % Band Neutrophils % % Lymphocytes % (Manual) (16.0-40.0) % Monocytes % (Manual) (0.0-15.0) % Eosinophils % (Manual) (0.0-7.0) % Basophils % (Manual) (0.0-1.5) % Nucleated RBC % /100WBC Absolute Seg Neuts (1.4-5.7) Band Neutrophils # Lymphocytes # (Manual) (0.6-2.4) Monocytes # (Manual) (0.0-0.8) Eosinophils # (Manual) (0.0-0.7) Basophils # (Manual) (0.0-0.1) Nucleated RBCs # K/uL Lactate (0.20-2.00) mmol/L Sodium (136-145) mmol/L Potassium (3.5-5.1) mmol/L Chloride (98-107) mmol/L Carbon Dioxide (21.0-32.0) mmol/L BUN (7.0-18.0) mg/dL Creatinine (0.6-1.0) mg/dL Est Cr Clr Drug Dosing mL/min Estimated GFR (MDRD) ml/min Glucose (74-106) mg/dL Calcium (8.5-10.1) mg/dL Total Bilirubin (0.2-1.0) mg/dL AST (15-37) IU/L ALT (14-63) IU/L Alkaline Phosphatase (46-116) U/L Total Protein (6.4-8.2) g/dL Albumin (3.4-5.0) g/dL Globulin (2.6-4.0) g/dL Albumin/Globulin Ratio (0.9-1.6) Urine Color YELLOW Urine Appearance CLOUDY Urine pH 6.0 (5.0-8.0) Ur Specific [place] 1.015 (1.001-1.035) Urine Protein TRACE H (NEGATIVE) mg/dL Urine Glucose (UA) NEGATIVE (NEGATIVE) mg/dL Urine Ketones NEGATIVE (NEGATIVE) mg/dL Urine Occult Blood LARGE H (NEGATIVE) Urine Nitrite NEGATIVE (NEGATIVE) Urine Bilirubin NEGATIVE (NEGATIVE) Urine Urobilinogen 0.2 (<2.0) EU/dL Ur Leukocyte Esterase LARGE H (NEGATIVE) Urine RBC 8-10 (0-2/HPF) Urine WBC 15-20 (0-5/HPF) Ur Epithelial Cells RARE (NONE-FEW) Urine Bacteria 1+ H (NEGATIVE) Blood Type A POSITIVE Antibody Screen NEGATIVE Darrin Results Last 24 Hours: Microbiology 11/10/18 23:48 Anaerobic Blood Culture - Final Blood - Venous - Lab Draw 11/10/18 23:04 Anaerobic Blood Culture - Final Blood - Venous Med Orders - Current: Current Medications Calcium Gluconate (Calcium Gluconate) 1 gm IV ASDIRECTED PRN PRN Reason: respiratory distress Docusate Sodium (Colace) 100 mg PO BID JORDIN Sodium Chloride (Normal Saline) 1,000 mls @ 75 mls/hr IV STAT JORDIN Last Admin: 11/11/18 08:22 Dose: 75 mls/hr Magnesium Sulfate (Magnesium Sulfate In Water Premix) 20 gm in 500 mls @ 50 mls /hr IV ASDIRECTED JORDIN Stop: 11/11/18 23:31 Last Admin: 11/11/18 02:03 Dose: 2 gm/hr, 50 mls/hr Labetalol HCl (Normodyne) 20 mg IVPUSH Q10M PRN; Protocol PRN Reason: Hypertension Labetalol HCl (Normodyne) 100 mg PO Q12H JORDIN Last Admin: 11/11/18 08:55 Dose: 100 mg Oxycodone/Acetaminophen (Percocet 325-5 Mg) 1 tab PO Q4H PRN PRN Reason: Pain Last Admin: 11/11/18 04:38 Dose: 1 tab Sodium Chloride (Saline Flush) 10 ml FLUSH ASDIRECTED PRN PRN Reason: Keep Vein Open Sodium Chloride (Saline Flush) 2.5 ml FLUSH ASDIRECTED PRN PRN Reason: Keep Vein Open Sodium Chloride (Normal Saline) 10 ml IV ASDIRECTED PRN PRN Reason: IV Use Discontinued Medications Magnesium Sulfate 4 gm/ Premix 100 mls @ 300 mls/hr IV BOLUS ONE Stop: 11/10/18 23:45 Last Admin: 11/11/18 00:36 Dose: 300 mls/hr - Exam General: Alert, Oriented Neck: Supple Lungs: Clear to Auscultation, Normal Respiratory Effort Cardiovascular: Regular Rate, Regular Rhythm GI/Abdominal Exam: Normal Bowel Sounds, Soft, Non-Tender, No Organomegaly, No Distention, No Abnormal Bruit, No Mass, Pelvis Stable Extremities: Normal Inspection, Non-Tender. No: No Pedal Edema (1+ bilateral) Neurological: Reflexes Equal Bilateral (3+ no clonus) - Problem List & Annotations (1) hypertension SNOMED Code(s): 96317279, 96721044, 272316000 Code(s): O16.5 - UNSPECIFIED MATERNAL HYPERTENSION, COMP THE PUERPERIUM Status: Acute Current Visit: Yes - Problem List Review Problem List Initiated/Reviewed/Updated: Yes - My Orders Last 24 Hours: My Active Orders 11/11/18 08:11 Labetalol [Normodyne] 20 mg IVPUSH Q10M PRN 11/11/18 08:15 Labetalol [Normodyne] 100 mg PO Q12H 11/11/18 09:15 Heart Tones [RC] CONTINUOUS 11/11/18 09:17 Notify Provider Vital Signs [RC] ASDIRECTED 11/11/18 21:00 Docusate Sodium [Colace] 100 mg PO BID - Assessment Assessment:: POD#5 after primary with hypertension and headache, otherwise normal labs, hypertension in severe range overnight, MD not notified. Pain control is adequate with percocet - Plan Plan:: parameters for notification of BP entered. Will start oral labetalol with IV labetalol for severe range, continue with magnesium until tomorrow. Monitor Urine output and weight. She has SCD's in place, colace initiated which she was taking at home.
[2018-11-11] MEDS: Ibuprofen 800 MG Tab PO PRN ×3 (09:44→23:07)
--- NOTE | 2018-11-11 18:12 | PCM.PN ---
- General Info Date of Service: 11/11/18 Functional Status: Reports: Pain Controlled, Tolerating Diet, Ambulating, Urinating - Review of Systems General: Reports: No Symptoms HEENT: Reports: No Symptoms. Denies: Visual Changes Pulmonary: Reports: No Symptoms. Denies: Shortness of Breath, Pleuritic Chest Pain Cardiovascular: Reports: No Symptoms, Edema (improving). Denies: Chest Pain Gastrointestinal: Reports: No Symptoms Genitourinary: Reports: No Symptoms Musculoskeletal: Reports: No Symptoms Skin: Reports: No Symptoms Neurological: Reports: Headache. Denies: No Symptoms (improved) Psychiatric: Reports: No Symptoms - Patient Data Vitals - Most Recent: Last Vital Signs Temp 37.5 C 11/11/18 09:00 Pulse 88 11/11/18 17:00 Resp 20 11/11/18 17:00 BP 147/83 H 11/11/18 17:00 Pulse Ox 97 11/11/18 17:00 Weight - Most Recent: 148.007 kg I&O - Last 24 Hours: Intake & Output 11/11/18 11/11/18 11/11/18 06:59 14:59 22:59 Intake Total 679 1496 194 Output Total 600 4050 700 Balance 79 -4084 -506 Lab Results Last 24 Hours: Laboratory Results - last 24 hr 11/10/18 11/10/18 11/10/18 Range/Units 23:04 23:04 23:04 WBC 13.14 H (4.0-11.0) K/uL RBC 3.18 L (4.30-5.90) M/uL Hgb 9.2 L (12.0-16.0) g/dL Hct 27.6 L (36.0-46.0) % MCV 86.8 (80.0-98.0) fL MCH 28.9 (27.0-32.0) pg MCHC 33.3 (31.0-37.0) g/dL RDW Std Deviation 44.3 (28.0-62.0) fl RDW Coeff of Caitlin 14 (11.0-15.0) % Plt Count 240 (150-400) K/uL MPV 9.80 (7.40-12.00) fL Add Manual Diff YES Neutrophils % (Manual) 63 (48.0-80.0) % Band Neutrophils % 10 % Lymphocytes % (Manual) 16 (16.0-40.0) % Monocytes % (Manual) 6 (0.0-15.0) % Eosinophils % (Manual) 4 (0.0-7.0) % Basophils % (Manual) 1 (0.0-1.5) % Nucleated RBC % 0.0 /100WBC Absolute Seg Neuts 8.3 H (1.4-5.7) Band Neutrophils # 1.3 Lymphocytes # (Manual) 2.1 (0.6-2.4) Monocytes # (Manual) 0.8 (0.0-0.8) Eosinophils # (Manual) 0.5 (0.0-0.7) Basophils # (Manual) 0.1 (0.0-0.1) Nucleated RBCs # 0 K/uL Lactate 1.5 (0.20-2.00) mmol/L Sodium 142 (136-145) mmol/L Potassium 3.9 (3.5-5.1) mmol/L Chloride 106 (98-107) mmol/L Carbon Dioxide 26.6 (21.0-32.0) mmol/L BUN 15 (7.0-18.0) mg/dL Creatinine 0.9 (0.6-1.0) mg/dL Est Cr Clr Drug Dosing 95.55 mL/min Estimated GFR (MDRD) > 60.0 ml/min Glucose 102 (74-106) mg/dL Calcium 8.7 (8.5-10.1) mg/dL Total Bilirubin 0.2 (0.2-1.0) mg/dL AST 13 L (15-37) IU/L ALT 25 (14-63) IU/L Alkaline Phosphatase 94 (46-116) U/L Total Protein 5.9 L (6.4-8.2) g/dL Albumin 2.1 L (3.4-5.0) g/dL Globulin 3.8 (2.6-4.0) g/dL Albumin/Globulin Ratio 0.6 L (0.9-1.6) Urine Color Urine Appearance Urine pH (5.0-8.0) Ur Specific [place] (1.001-1.035) Urine Protein (NEGATIVE) mg/dL Urine Glucose (UA) (NEGATIVE) mg/dL Urine Ketones (NEGATIVE) mg/dL Urine Occult Blood (NEGATIVE) Urine Nitrite (NEGATIVE) Urine Bilirubin (NEGATIVE) Urine Urobilinogen (<2.0) EU/dL Ur Leukocyte Esterase (NEGATIVE) Urine RBC (0-2/HPF) Urine WBC (0-5/HPF) Ur Epithelial Cells (NONE-FEW) Urine Bacteria (NEGATIVE) Blood Type Antibody Screen 11/10/18 11/11/18 Range/Units 23:54 05:30 WBC (4.0-11.0) K/uL RBC (4.30-5.90) M/uL Hgb (12.0-16.0) g/dL Hct (36.0-46.0) % MCV (80.0-98.0) fL MCH (27.0-32.0) pg MCHC (31.0-37.0) g/dL RDW Std Deviation (28.0-62.0) fl RDW Coeff of Caitlin (11.0-15.0) % Plt Count (150-400) K/uL MPV (7.40-12.00) fL Add Manual Diff Neutrophils % (Manual) (48.0-80.0) % Band Neutrophils % % Lymphocytes % (Manual) (16.0-40.0) % Monocytes % (Manual) (0.0-15.0) % Eosinophils % (Manual) (0.0-7.0) % Basophils % (Manual) (0.0-1.5) % Nucleated RBC % /100WBC Absolute Seg Neuts (1.4-5.7) Band Neutrophils # Lymphocytes # (Manual) (0.6-2.4) Monocytes # (Manual) (0.0-0.8) Eosinophils # (Manual) (0.0-0.7) Basophils # (Manual) (0.0-0.1) Nucleated RBCs # K/uL Lactate (0.20-2.00) mmol/L Sodium (136-145) mmol/L Potassium (3.5-5.1) mmol/L Chloride (98-107) mmol/L Carbon Dioxide (21.0-32.0) mmol/L BUN (7.0-18.0) mg/dL Creatinine (0.6-1.0) mg/dL Est Cr Clr Drug Dosing mL/min Estimated GFR (MDRD) ml/min Glucose (74-106) mg/dL Calcium (8.5-10.1) mg/dL Total Bilirubin (0.2-1.0) mg/dL AST (15-37) IU/L ALT (14-63) IU/L Alkaline Phosphatase (46-116) U/L Total Protein (6.4-8.2) g/dL Albumin (3.4-5.0) g/dL Globulin (2.6-4.0) g/dL Albumin/Globulin Ratio (0.9-1.6) Urine Color YELLOW Urine Appearance CLOUDY Urine pH 6.0 (5.0-8.0) Ur Specific [place] 1.015 (1.001-1.035) Urine Protein TRACE H (NEGATIVE) mg/dL Urine Glucose (UA) NEGATIVE (NEGATIVE) mg/dL Urine Ketones NEGATIVE (NEGATIVE) mg/dL Urine Occult Blood LARGE H (NEGATIVE) Urine Nitrite NEGATIVE (NEGATIVE) Urine Bilirubin NEGATIVE (NEGATIVE) Urine Urobilinogen 0.2 (<2.0) EU/dL Ur Leukocyte Esterase LARGE H (NEGATIVE) Urine RBC 8-10 (0-2/HPF) Urine WBC 15-20 (0-5/HPF) Ur Epithelial Cells RARE (NONE-FEW) Urine Bacteria 1+ H (NEGATIVE) Blood Type A POSITIVE Antibody Screen NEGATIVE Darrin Results Last 24 Hours: Microbiology 11/10/18 23:48 Anaerobic Blood Culture - Final Blood - Venous - Lab Draw 11/10/18 23:04 Anaerobic Blood Culture - Final Blood - Venous Med Orders - Current: Current Medications Calcium Gluconate (Calcium Gluconate) 1 gm IV ASDIRECTED PRN PRN Reason: respiratory distress Docusate Sodium (Colace) 100 mg PO BID JORDIN Sodium Chloride (Normal Saline) 1,000 mls @ 75 mls/hr IV STAT JORDIN Last Infusion: 11/11/18 14:30 Dose: 10 mls/hr Magnesium Sulfate (Magnesium Sulfate In Water Premix) 20 gm in 500 mls @ 50 mls /hr IV ASDIRECTED JORDIN Stop: 11/11/18 23:31 Last Admin: 11/11/18 12:17 Dose: 2 gm/hr, 50 mls/hr Ibuprofen (Motrin) 800 mg PO Q6H PRN PRN Reason: Pain Last Admin: 11/11/18 15:49 Dose: 800 mg Labetalol HCl (Normodyne) 20 mg IVPUSH Q10M PRN; Protocol PRN Reason: Hypertension Labetalol HCl (Normodyne) 100 mg PO Q12H JORDIN Last Admin: 11/11/18 08:55 Dose: 100 mg Oxycodone/Acetaminophen (Percocet 325-5 Mg) 1 tab PO Q4H PRN PRN Reason: Pain Last Admin: 11/11/18 04:38 Dose: 1 tab Sodium Chloride (Saline Flush) 10 ml FLUSH ASDIRECTED PRN PRN Reason: Keep Vein Open Sodium Chloride (Saline Flush) 2.5 ml FLUSH ASDIRECTED PRN PRN Reason: Keep Vein Open Sodium Chloride (Normal Saline) 10 ml IV ASDIRECTED PRN PRN Reason: IV Use Discontinued Medications Magnesium Sulfate 4 gm/ Premix 100 mls @ 300 mls/hr IV BOLUS ONE Stop: 11/10/18 23:45 Last Admin: 11/11/18 00:36 Dose: 300 mls/hr - Exam General: Alert, Oriented Lungs: Clear to Auscultation, Normal Respiratory Effort Cardiovascular: Regular Rate, Regular Rhythm GI/Abdominal Exam: Normal Bowel Sounds, Soft, Non-Tender, No Organomegaly, No Distention, No Mass Extremities: Non-Tender. No: No Pedal Edema (1+) Neurological: No New Focal Deficit, Other (DTR2+ equal bilaterally.) Psy/Mental Status: Alert, Normal Affect, Normal Mood - Problem List & Annotations (1) hypertension SNOMED Code(s): 40695912, 21680050, 581637560 Code(s): O16.5 - UNSPECIFIED MATERNAL HYPERTENSION, COMP THE PUERPERIUM Status: Acute Current Visit: Yes - Problem List Review Problem List Initiated/Reviewed/Updated: Yes - My Orders Last 24 Hours: My Active Orders 11/11/18 08:11 Labetalol [Normodyne] 20 mg IVPUSH Q10M PRN 11/11/18 08:15 Labetalol [Normodyne] 100 mg PO Q12H 11/11/18 09:17 Notify Provider Vital Signs [RC] ASDIRECTED 11/11/18 09:22 Ibuprofen [Motrin] 800 mg PO Q6H PRN 11/11/18 21:00 Docusate Sodium [Colace] 100 mg PO BID - Assessment Assessment:: POD#5 after primary with hypertension and headache, otherwise normal labs, hypertension is improved with 100 mg labetalol, excellent diuresis over 4700 UO in 12 hours. Headache is improving. - Plan Plan:: Discontinue magnesium after 24 hours continue labetalol 100 mg BID, continue with accurate I/O. Dr. Armas assuming care at this time.
[2018-11-11] MEDS: Docusate Sodium 100 MG Cap PO SCH (20:01)
[2018-11-12] MEDS: Ibuprofen 800 MG Tab PO PRN (05:00)
[2018-11-12] MEDS: Labetalol 100 MG Tab PO SCH (07:33)
[2018-11-12] MEDS: Docusate Sodium 100 MG Cap PO SCH (08:12)
--- NOTE | 2018-11-12 12:56 | PCM.PN ---
- General Info Date of Service: 11/12/18 Subjective Update: Feeling very well this AM, reports swelling has improved. No headache or SOB. Good diuresis. Desires to go home Functional Status: Reports: Pain Controlled, Tolerating Diet, Ambulating, Urinating - Review of Systems General: Reports: No Symptoms HEENT: Reports: No Symptoms Pulmonary: Reports: No Symptoms Cardiovascular: Reports: No Symptoms Gastrointestinal: Reports: No Symptoms Genitourinary: Reports: No Symptoms Musculoskeletal: Reports: No Symptoms Skin: Reports: No Symptoms Neurological: Reports: No Symptoms Psychiatric: Reports: No Symptoms - Patient Data Vitals - Most Recent: Last Vital Signs Temp 36.6 C 11/12/18 07:40 Pulse 83 11/12/18 07:40 Resp 18 11/12/18 07:40 BP 148/88 H 11/12/18 10:09 Pulse Ox 96 11/12/18 07:40 Weight - Most Recent: 310 lb 10.101 oz I&O - Last 24 Hours: Intake & Output 11/11/18 11/12/18 11/12/18 22:59 06:59 14:59 Intake Total 593 380 250 Output Total 2650 1725 350 Balance -2057 -1345 -100 Darrin Results Last 24 Hours: Microbiology 11/10/18 23:48 Aerobic Blood Culture - Preliminary Blood - Venous - Lab Draw NO GROWTH AFTER 1 DAY Anaerobic Blood Culture - Final 11/10/18 23:04 Aerobic Blood Culture - Preliminary Blood - Venous NO GROWTH AFTER 1 DAY Anaerobic Blood Culture - Final Med Orders - Current: Current Medications Calcium Gluconate (Calcium Gluconate) 1 gm IV ASDIRECTED PRN PRN Reason: respiratory distress Docusate Sodium (Colace) 100 mg PO BID [facility] Last Admin: 11/12/18 08:12 Dose: 100 mg Ibuprofen (Motrin) 800 mg PO Q6H PRN PRN Reason: Pain Last Admin: 11/12/18 05:00 Dose: 800 mg Labetalol HCl (Normodyne) 20 mg IVPUSH Q10M PRN; Protocol PRN Reason: Hypertension Labetalol HCl (Normodyne) 100 mg PO Q12H [facility] Last Admin: 11/12/18 07:33 Dose: 100 mg Oxycodone/Acetaminophen (Percocet 325-5 Mg) 1 tab PO Q4H PRN PRN Reason: Pain Last Admin: 11/11/18 04:38 Dose: 1 tab Sodium Chloride (Saline Flush) 10 ml FLUSH ASDIRECTED PRN PRN Reason: Keep Vein Open Sodium Chloride (Saline Flush) 2.5 ml FLUSH ASDIRECTED PRN PRN Reason: Keep Vein Open Sodium Chloride (Normal Saline) 10 ml IV ASDIRECTED PRN PRN Reason: IV Use Discontinued Medications Sodium Chloride (Normal Saline) 1,000 mls @ 10 mls/hr IV STAT JORDIN Stop: 11/11/18 23:30 Last Infusion: 11/11/18 14:30 Dose: 10 mls/hr Magnesium Sulfate 4 gm/ Premix 100 mls @ 300 mls/hr IV BOLUS ONE Stop: 11/10/18 23:45 Last Admin: 11/11/18 00:36 Dose: 300 mls/hr Magnesium Sulfate (Magnesium Sulfate In Water Premix) 20 gm in 500 mls @ 50 mls /hr IV ASDIRECTED JORDIN Stop: 11/11/18 23:31 Last Admin: 11/11/18 22:11 Dose: 2 gm/hr, 50 mls/hr - Exam General: Alert, Oriented, No Acute Distress Lungs: Clear to Auscultation, Normal Respiratory Effort Cardiovascular: Regular Rate, Regular Rhythm, No Murmurs GI/Abdominal Exam: Normal Bowel Sounds, Soft, Non-Tender, No Distention ( Incision c/d/i) Extremities: Normal Inspection (Minimal edema) Wound/Incisions: Healing Well Neurological: No New Focal Deficit - Problem List & Annotations (1) hypertension SNOMED Code(s): 41473577, 11684118, 431425401 Code(s): O16.5 - UNSPECIFIED MATERNAL HYPERTENSION, COMP THE PUERPERIUM Status: Resolved Current Visit: Yes - Problem List Review Problem List Initiated/Reviewed/Updated: Yes - My Orders Last 24 Hours: My Active Orders 11/12/18 11:02 Ready for Discharge [RC] PER UNIT ROUTINE - Assessment Assessment:: POD#6 after primary with hypertension and headache, now resolved s/p Mg therapyl - Plan Plan:: BP mild range on labetalol 100mg BID, no symptoms currently with stable labs. Stable for discharge at this time, labetalol sent to pharmacy. F/u at [facility] in 1 week. Reviewed BP checks at home and symptoms of preeclampsia.
== END 2018-11-12 12:03 | disposition home or self-care (01) ==
LOC: MW.ED 22:07 → MW.MS 22:50 → MW.ICU 11-11 07:14
PROVIDERS: ADMIT Obstetrics & Gynecology; ATTEND Obstetrics & Gynecology
DX: O14.95 Unspecified pre-eclampsia, complicating the puerperium (principal); O99.63 Diseases of the digestive system complicating the puerperium; O99.215 Obesity complicating the puerperium; K21.9 Gastro-esophageal reflux disease without esophagitis; E66.9 Obesity, unspecified; F17.210 Nicotine dependence, cigarettes, uncomplicated; Z68.42 Body mass index [BMI] 45.0-49.9, adult; Z98.891 History of uterine scar from previous surgery; Z79.891 Long term (current) use of opiate analgesic; Z79.899 Other long term (current) drug therapy
CPT/HCPCS: 36415; 71045; 80053; 81001; 83605; 85025; 86850; 86900; 86901; 87040; 87086; 96360; 96361; 99284; A9270; J3475; J7040; 96365; 96366; 99283; G0378

== ENCOUNTER 2022-05-04 08:42 | Day surgery (SDC) | payer OTHER, BC ==
[~2022-05-04 08:42] MED LIST: Albuterol 0.083% 2.5 MG/3 ML Neb Soln NEB PRN; HYDROmorphone 1 MG/ML Syringe IVPUSH PRN; Lactated Ringers 1,000 ML IV SCH; Metoclopramide 10 MG/2 ML SDV IVPUSH PRN; Morphine 2 MG/ML SYRINGE IVPUSH PRN; Naloxone 0.4 MG/ML SDV IVPUSH PRN; Ondansetron 4 MG/2 ML SDV IVPUSH PRN; fentaNYL 50 MCG/ML SDV IVPUSH PRN
[2022-05-04] MEDS ORDERED: Dexmedetomidine 200 MCG/2 ML SDV ONE (10:01)
[2022-05-04] MEDS ORDERED: Propofol 200 MG/20 ML SDV ONE ×2 (10:01→11:02)
[2022-05-04] MEDS ORDERED: fentaNYL 100 MCG/2 ML SDV ONE ×2 (10:01→11:02)
[2022-05-04] MEDS ORDERED: Lidocaine 2% 5 ML SDV ONE ×2 (10:01→12:57)
[2022-05-04] MEDS ORDERED: Succinylcholine/Sod PF 100 MG/5 ML SYRINGE IV ONE (10:01)
[2022-05-04] MEDS ORDERED: Bupivacaine 0.5% 30 ML SDV ONE (10:03)
[2022-05-04] MEDS ORDERED: Ondansetron 4 MG/2 ML SDV ONE ×2 (10:10→11:02)
[2022-05-04] MEDS ORDERED: Magnesium Sulfate (4.06 MEQ/ML) 5 GM/10 ML SDV ONE (10:39)
[2022-05-04] MEDS ORDERED: Dexamethasone 4 MG/ML 5 ML MDV ONE (10:41)
[2022-05-04] MEDS ORDERED: ceFAZolin 2 GM Vial ONE (10:42)
[2022-05-04] MEDS ORDERED: Water For Injection, Sterile 20 ML ONE (10:43)
[2022-05-04] MEDS ORDERED: Ketorolac 30 MG/ML SDV ONE (11:02)
[2022-05-04] MEDS ORDERED: Acetaminophen/HYDROcodone 325-5 MG Tab PO PRN (11:15)
[2022-05-04] MEDS ORDERED: Lactated Ringers 1,000 ML IV SCH (11:15)
== END 2022-05-04 12:22 | disposition home or self-care (01) ==
LOC: MW.SDS 08:42
PROVIDERS: ATTEND Surgery
DX: D17.1 Benign lipomatous neoplasm of skin and subcutaneous tissue of trunk (principal); K21.9 Gastro-esophageal reflux disease without esophagitis; F17.210 Nicotine dependence, cigarettes, uncomplicated; E66.9 Obesity, unspecified; Z88.5 Allergy status to narcotic agent; Z79.899 Other long term (current) drug therapy; Z98.890 Other specified postprocedural states; Z68.41 Body mass index [BMI] 40.0-44.9, adult
CPT/HCPCS: 21931; 81025; J0330; J0690; J1100; J1885; J2405; J2704; J3010; J3475; J3490; J7120

== ENCOUNTER 2023-02-14 06:37 | Emergency (ER) | payer OTHER, BC ==
[2023-02-14] MEDS ORDERED: Morphine 4 MG/ML Syringe IM ONE ×2 (07:41→08:39)
== END 2023-02-14 10:01 | disposition home or self-care (01) ==
LOC: MW.ED 06:37
DX: L02.31 Cutaneous abscess of buttock (principal); E66.9 Obesity, unspecified; Z68.42 Body mass index [BMI] 45.0-49.9, adult; Z88.5 Allergy status to narcotic agent; Z98.890 Other specified postprocedural states
CPT/HCPCS: 96372; 99282; J2270; 10060; 99283

== ENCOUNTER 2023-03-08 07:35 | Inpatient (IN) | payer OTHER, BC ==
[2023-03-08] MEDS ORDERED: fentaNYL 100 MCG/2 ML SDV ONE (07:47)
[2023-03-08] MEDS ORDERED: Water For Injection, Sterile 20 ML ONE (07:50)
[2023-03-08] MEDS: Lactated Ringers 1,000 ML IV SCH ×2 (07:50→08:52)
[2023-03-08] MEDS ORDERED: Sodium Chloride 0.9% 10 ML Syringe FLUSH PRN (07:56)
[2023-03-08] MEDS ORDERED: Sodium Chloride 0.9% 20 ML SDV IV PRN (07:56)
[2023-03-08] MEDS ORDERED: Sodium Chloride 0.9% 2.5 ML Syringe FLUSH PRN (07:56)
[2023-03-08] MEDS ORDERED: Citric Acid/Sodium Citrate Solution 30 ML Cup PO ONE (07:56)
[2023-03-08] MEDS ORDERED: Oxytocin/0.9 % Sodium Chloride 30 UNIT/500 ML BAG IV SCH ×2 (08:00→11:30)
[2023-03-08] MEDS ORDERED: ceFAZolin 2 GM in Sodium Chloride 0.9% 100 ML IV ONE (08:15)
[2023-03-08] MEDS ORDERED: ceFAZolin 1 GM in Sodium Chloride 0.9% 50 ML IV ONE (08:15)
[2023-03-08 08:33] LABS: HEMATOCRIT 33.1 % (37.0-47.0); HEMOGLOBIN 11.8 g/dL (12.0-16.0); MEAN CORPUSCULAR HEMOGLOBIN 30.3 pg (28.0-32.0); MEAN CORPUSCULAR HGB CONC 35.6 g/dL (32.0-36.0); MEAN CORPUSCULAR VOLUME 84.9 fL (83.0-99.0); MEAN PLATELET VOLUME 10.7 fL (9.4-12.3); PLATELET COUNT,PLT 229 K/uL (150-400); WHITE BLOOD CELL COUNT,WBC 15.42 K/uL (3.9-11.3)
[2023-03-08] MEDS ORDERED: droPERidol 5 MG/2 ML SDV IVPUSH PRN (08:53)
[2023-03-08] MEDS ORDERED: Naloxone 0.4 MG/ML SDV IVPUSH PRN (08:53)
[2023-03-08] MEDS ORDERED: Ondansetron 4 MG/2 ML SDV IVPUSH PRN ×3 (08:53→11:28)
[2023-03-08] MEDS ORDERED: fentaNYL 100 MCG/2 ML SDV IVPUSH PRN (08:53)
[2023-03-08] MEDS ORDERED: Metoclopramide 10 MG/2 ML SDV IVPUSH PRN (08:53)
[2023-03-08] MEDS ORDERED: Morphine 2 MG/ML SYRINGE IVPUSH PRN (08:53)
[2023-03-08] MEDS ORDERED: fentaNYL 50 MCG/ML SDV IVPUSH ONE (08:53)
[2023-03-08] MEDS ORDERED: Albuterol 0.083% 2.5 MG/3 ML Neb Soln NEB PRN (08:53)
[2023-03-08] MEDS ORDERED: ePHEDrine 50 MG/ML SDV IVPUSH PRN (08:53)
[2023-03-08] MEDS ORDERED: diphenhydrAMINE 50 MG/ML SDV IVPUSH PRN ×2 (08:53→11:28)
[2023-03-08] MEDS ORDERED: ceFAZolin 2 GM Vial ONE (09:06)
[2023-03-08] MEDS ORDERED: ceFAZolin 1 GM Vial ONE (09:06)
[2023-03-08] MEDS ORDERED: Ropivacaine 0.5% 5 MG/ML 30 ML SDV ONE (09:09)
[2023-03-08] MEDS ORDERED: Famotidine 20 MG/2 ML SDV ONE (09:09)
[2023-03-08] MEDS ORDERED: Morphine 10 MG/ML SDV ONE (09:12)
[2023-03-08] MEDS ORDERED: Water For Injection, Sterile 40 ML ONE (09:16)
[2023-03-08] MEDS ORDERED: ePHEDrine 50 MG/ML SDV ONE (10:37)
[2023-03-08] MEDS ORDERED: Phenylephrine 1% 10 MG/ML SDV ONE (10:37)
[2023-03-08] MEDS ORDERED: Oxytocin 10 Units/1 ML SDV ONE (10:38)
[2023-03-08] MEDS ORDERED: Ketorolac 30 MG/ML SDV ONE (10:45)
[2023-03-08] MEDS ORDERED: diphenhydrAMINE 50 MG/ML SDV ONE (10:45)
[2023-03-08] MEDS ORDERED: Lanolin 100% Cream 7 GM Tube TOP PRN (11:28)
[2023-03-08] MEDS ORDERED: Acetaminophen 500 MG Tab PO PRN (11:28)
[2023-03-08] MEDS ORDERED: Methylergonovine 0.2 MG/1 ML Amp IM PRN (11:28)
[2023-03-08] MEDS ORDERED: Misoprostol 200 MCG Tab RECTAL PRN (11:28)
[2023-03-08] MEDS ORDERED: Oxytocin 10 Units/1 ML SDV IM PRN (11:28)
[2023-03-08] MEDS ORDERED: Bisacodyl 10 MG Supp RECTAL PRN (11:28)
[2023-03-08] MEDS ORDERED: oxyCODONE 5 MG Tab PO PRN (11:28)
[2023-03-08] MEDS ORDERED: Lactated Ringers 1,000 ML IV SCH (11:30)
[2023-03-08 11:48] LABS: PH,UMBILICAL ARTERIAL 7.32 (7.18-7.38); PH,UMBILICAL VENOUS 7.248 (7.25-7.45)
[2023-03-08] MEDS: Acetaminophen 1,000 MG in Premix Bag 1 BAG IV SCH ×3 (12:09→23:56)
[2023-03-08] MEDS ORDERED: LORazepam 2 MG/ML SDV IVPUSH PRN (12:42)
[2023-03-08] MEDS: Ketorolac 30 MG/ML SDV IVPUSH SCH ×2 (15:46→21:01)
[2023-03-08] MEDS ORDERED: Ketorolac 30 MG/ML SDV IVPUSH SCH (17:00)
[2023-03-08] MEDS: Docusate Sodium 100 MG Cap PO SCH (21:03)
[2023-03-09] MEDS ORDERED: oxyCODONE 5 MG Tab PO PRN (00:40)
[2023-03-09] MEDS: Ketorolac 30 MG/ML SDV IVPUSH SCH (03:55)
[2023-03-09 06:23] LABS: HEMATOCRIT 30.8 % (37.0-47.0); HEMOGLOBIN 10.7 g/dL (12.0-16.0)
[2023-03-09] MEDS ORDERED: EPINEPHrine 1 MG/1 ML Amp ONE (06:31)
[2023-03-09] MEDS: Acetaminophen 1,000 MG in Premix Bag 1 BAG IV SCH (07:29)
[2023-03-09] MEDS: Docusate Sodium 100 MG Cap PO SCH ×2 (09:49→20:03)
[2023-03-09] MEDS: Acetaminophen/oxyCODONE 325-5 MG Tab PO PRN ×2 (12:58→19:14)
[2023-03-09] MEDS: Ibuprofen 800 MG Tab PO PRN (15:58)
[2023-03-10] MEDS: Acetaminophen/oxyCODONE 325-5 MG Tab PO PRN ×2 (01:12→08:46)
[2023-03-10] MEDS: Ibuprofen 800 MG Tab PO PRN (01:13)
[2023-03-10] MEDS: Docusate Sodium 100 MG Cap PO SCH (09:50)
== END 2023-03-10 11:40 | disposition home or self-care (01) | DRG 788 ==
LOC: MW.OB 07:35 → OBSVTOIN 07:35 → MW.OB 15:10
PROVIDERS: ADMIT Obstetrics & Gynecology; ATTEND Obstetrics & Gynecology
PROC: 10D00Z1 Extraction of Products of Conception, Low, Open Approach (ICD-10-PCS; principal; 2023-03-08 09:45)
DX: O34.211 Maternal care for low transverse scar from previous cesarean delivery (principal); O99.214 Obesity complicating childbirth; E66.01 Morbid (severe) obesity due to excess calories; Z37.0 Single live birth; O99.334 Smoking (tobacco) complicating childbirth; F17.210 Nicotine dependence, cigarettes, uncomplicated; Z3A.39 39 weeks gestation of pregnancy
CPT/HCPCS: 01961; 36415; 59025; 64488; 82803; 85014; 85018; 85027; 86592; 86850; 86900; 86901; A9270-GY; J0131; J0171; J0690; J1200; J1885; J2060; J2270; J2371; J2590; J2795; J3010; J3490; J7120

== ENCOUNTER 2023-04-02 21:01 | Emergency (ER) | payer OTHER, BC ==
[2023-04-02] MEDS ORDERED: Ondansetron 4 MG/2 ML SDV IVPUSH ONE (21:24)
[2023-04-02] MEDS ORDERED: Ketorolac 30 MG/ML SDV IVPUSH ONE (21:24)
[2023-04-02] MEDS ORDERED: Sodium Chloride 0.9% 10 ML Syringe FLUSH PRN (21:24)
[2023-04-02] MEDS ORDERED: Sodium Chloride 0.9% 2.5 ML Syringe FLUSH PRN (21:24)
[2023-04-02] MEDS ORDERED: Sodium Chloride 0.9% 1,000 ML IV ONE (21:24)
[2023-04-02 21:31] LABS: BILIRUBIN,URINE NEGATIVE (NEGATIVE); COLOR,URINE YELLOW; GLUCOSE,URINE NEGATIVE (NEGATIVE); KETONES,URINE NEGATIVE (NEGATIVE); LEUKOCYTE ESTERASE,URINE NEGATIVE (NEGATIVE); NITRITE,URINE NEGATIVE (NEGATIVE); OCCULT BLOOD,URINE MODERATE (NEGATIVE); PROTEIN,URINE NEGATIVE (NEGATIVE); UROBILINOGEN,URINE 0.2 EU/dL (<2.0)
[2023-04-02 21:33] LABS: APPEARANCE,URINE HAZY
[2023-04-02 21:36] LABS: BASOPHILS ABSOLUTE AUTO 0.04 K/uL (0.00-0.20); BASOPHILS PERCENT AUTO 0.3 % (0.0-1.0); EOSINOPHILS ABSOLUTE AUTO 0.29 K/uL (0.00-0.45); EOSINOPHILS PERCENT AUTO 2.4 % (0.0-6.0); HEMATOCRIT 41.1 % (37.0-47.0); HEMOGLOBIN 13.8 g/dL (12.0-16.0); IMMATURE GRAN ABSOLUTE AUTO 0.03 K/uL (0.00-0.05); IMMATURE GRAN PERCENT AUTO 0.3 % (0.0-0.4); LYMPHOCYTES ABSOLUTE AUTO 3.75 K/uL (1.00-4.80); LYMPHOCYTES PERCENT AUTO 31.5 % (24.0-44.0); MEAN CORPUSCULAR HEMOGLOBIN 28.6 pg (28.0-32.0); MEAN CORPUSCULAR HGB CONC 33.6 g/dL (32.0-36.0); MEAN CORPUSCULAR VOLUME 85.3 fL (83.0-99.0); MEAN PLATELET VOLUME 10.5 fL (9.4-12.3); MONOCYTES ABSOLUTE AUTO 0.93 K/uL (0.00-0.80); MONOCYTES PERCENT AUTO 7.8 % (0.0-8.0); NEUTROPHILS ABSOLUTE AUTO 6.87 K/uL (1.80-7.70); NEUTROPHILS PERCENT AUTO 57.7 % (41.0-71.0); PLATELET COUNT,PLT 329 K/uL (150-400); RED BLOOD CELL COUNT 4.82 M/uL (4.10-5.30); WHITE BLOOD CELL COUNT,WBC 11.91 K/uL (3.9-11.3)
[2023-04-02 21:45] LABS: BACTERIA,URINE FEW (NEGATIVE); EPITHELIAL CELLS,URINE MODERATE (NONE-FEW); WBC,URINE 0-2 (0-5/HPF)
[2023-04-02 21:58] LABS: A/G RATIO 1.2 (0.9-1.6); ALBUMIN 3.9 g/dL (3.4-5.0); BILIRUBIN TOTAL 0.3 mg/dL (0.2-1.0); CALCIUM 9.3 mg/dL (8.5-10.1); CARBON DIOXIDE,CO2 24.9 mmol/L (21.0-32.0); CREATININE 1.4 mg/dL (0.6-1.0); EST CRCL DRUG DOSING (CG) 60.85 mL/min; POTASSIUM,K 4.5 mmol/L (3.5-5.1); PROTEIN TOTAL,TP 7.1 g/dL (6.4-8.2)
[2023-04-02] MEDS ORDERED: Tamsulosin 0.4 MG Cap.ER PO ONE (23:23)
== END 2023-04-02 23:51 | disposition home or self-care (01) ==
LOC: MW.ED 21:01
DX: N20.0 Calculus of kidney (principal); E66.9 Obesity, unspecified; K21.9 Gastro-esophageal reflux disease without esophagitis; Z86.16 Personal history of COVID-19; Z79.899 Other long term (current) drug therapy; Z88.8 Allergy status to other drugs, medicaments and biological substances
CPT/HCPCS: 36415; 74176; 80053; 81001; 83690; 85025; 96361; 96374; 96375; 99284; A9270; J1885; J2405; J3490; J7030

== ENCOUNTER 2025-01-08 00:45 | Emergency (ER) | payer BC, OTHER ==
[2025-01-08] MEDS: Amoxicillin/Clavulanate K 875-125 MG Tab PO ONE (01:54)
== END 2025-01-08 02:03 | disposition home or self-care (01) ==
LOC: MW.ED 00:45
DX: J18.9 Pneumonia, unspecified organism (principal); R03.0 Elevated blood-pressure reading, without diagnosis of hypertension; J45.909 Unspecified asthma, uncomplicated; K21.9 Gastro-esophageal reflux disease without esophagitis; E66.9 Obesity, unspecified; F17.210 Nicotine dependence, cigarettes, uncomplicated; Z68.36 Body mass index [BMI] 36.0-36.9, adult; Z86.16 Personal history of COVID-19; Z88.5 Allergy status to narcotic agent; Z79.899 Other long term (current) drug therapy
CPT/HCPCS: 71046; 87428; 93005; 99285; A9270; J7620; J8540; 93010; 99284